=== PATIENT | female | born 1950 | race Caucasian/White ===

== ENCOUNTER 2017-02-13 03:56 | Emergency (ER) | payer MEDICARE, BC ==
[2017-02-13] MEDS ORDERED: NS 0.9% 1000 ML* 1,000 ML IV ONE (04:18)
[2017-02-13] MEDS ORDERED: Morphine INJ* 4 MG/ML 1 ML SYRINGE IV ONE ×2 (04:18→06:03)
[2017-02-13] MEDS ORDERED: Ondansetron INJ* 2 MG/ML VIAL IV ONE (04:18)
--- NOTE | 2017-02-13 04:59 | ED ---
José Antonio Gandhi Salem, scribed for Antony Chu MD on 02/13/17 at 0428 . Abdominal Pain/Female - HPI Summary HPI Summary: Patient is 67 y/o F who presents to the ED with sudden onset abdominal pain radiating into her back since 0230 today. She reports vomiting (once) and nausea , but denies fever or diarrhea. She denies hx of abd pain. Pt reports eating PJ sandwich and ice cream for dinner as her and her were in a hurry. Pt states that pain woke her up this morning. NKDA. 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 Negative : Fever, Diarrhea Allergies/Adverse Reactions: Allergies Allergy/AdvReac Type Severity Reaction Status Date / Time No Known Allergies Allergy Verified 02/13/17 04:02 PMH/Surg Hx/FS Hx/Imm Hx Endocrine/Hematology History: Denies: Hx Diabetes Cardiovascular History: Reports: Hx Hypertension Denies: Hx Congestive Heart Failure History: Denies: Hx Renal Disease Musculoskeletal History: Reports: Hx Arthritis Denies: Hx Back Problems, Hx Bursitis, Hx Congenital Bone Abnormalities, Hx Fibromyalgia, Hx Gout, Hx Orthopedic Injury, Hx Osteoporosis, Hx Scoliosis, Hx Tendonitis, Other Musculoskeletal History - Cancer History Hx Chemotherapy: No Hx Radiation Therapy: No - Surgical History Surgery Procedure, Year, and Place: Plate on Right leg for Fracture 2000. Tubal ligation. Hx Anesthesia Reactions: No Infectious Disease History: Denies: Traveled Outside the [place] in Last 30 Days - Family History Known Family History: Positive: Hypertension - Social History Alcohol Use: Rare Hx Substance Use: Yes Substance Use Type: Reports: Excessive Caffeine Review of Systems Negative: Fever Positive: Abdominal Pain, Vomiting, Nausea. Negative: Diarrhea All Other Systems Reviewed And Are Negative: Yes Physical Exam Triage Information Reviewed: Yes Vital Signs On Initial Exam: Initial Vitals Temp Pulse Resp BP Pulse Ox 97.4 F 64 20 97/80 100 02/13/17 03:59 02/13/17 03:59 02/13/17 03:59 02/13/17 03:59 02/13/17 03:59 Vital Signs Reviewed: Yes Appearance: Positive: Pain Distress - mild discomfort, Obese Skin: Positive: Warm Head/Face: Positive: Normal Head/Face Inspection Eyes: Positive: ISIDORO ENT: Positive: Hearing grossly normal Neck: Positive: Supple Respiratory/Lung Sounds: Positive: Breath Sounds Present Cardiovascular: Positive: RRR Abdomen Description: Positive: Soft, Distended, Other: - moderate diffuse abd tenderness Bowel Sounds: Positive: Present Musculoskeletal: Positive: Strength/ROM Intact Neurological: Positive: Alert, Oriented to Person Place, Time Diagnostics - Vital Signs Vital Signs Temp Pulse Resp BP Pulse Ox 02/13/17 03:59 97.4 F 64 20 97/80 100 - Laboratory Result Diagrams: 02/13/17 06:14 02/13/17 06:14 Lab Statement: Any lab studies that have been ordered have been reviewed, and results considered in the medical decision making process. - CT abd/pelvis CT Interpretation Completed By: Radiologist - IMPRESSION: see EMR pending radiology. Re-Evaluation - Re-Evaluation First Eval Change: Improved Abdominal Pain Fem Course/Dx - Course Course Of Treatment: 67 y/o F presents with sudden onset abdominal pain radiating into her back since 0230 today. She reports vomiting (once) and nausea , but denies fever or diarrhea. Pt received fluids, Morphine, and Zofran in the ED course. Pending CT. Pt will be signed out at shift change. - Diagnoses Provider Diagnoses: Abdominal pain Discharge - Discharge Plan Condition: Stable Disposition: HOME Discharge Disposition Comment: Sign out to Dr. Galeano at shift change. Patient Education Materials: Abdominal Pain (ED) Referrals: Non Staff,Doctor [Primary Care Provider] - 2 Days The documentation as recorded by the José Antonio amor Salem accurately reflects the service I personally performed and the decisions made by me, Antony Chu MD.
[2017-02-13 06:25] LABS: Hematocrit 39 % (35-47); Mean Corpuscular HGB Conc 33 g/dl (31-36); Mean Corpuscular Hemoglobin 31 pg (27-31); Mean Corpuscular Volume 93 fL (80-97); Mean Platelet Volume 10 um3 (7.4-10.4); Red Blood Count 4.23 10^6/ul (4.0-5.4); Red Cell Distribution Width 14 % (10.5-15); White Blood Count 15.5 10^3/ul (3.5-10.8)
[2017-02-13 06:46] LABS: Albumin 4.2 g/dL (3.2-5.2); C Reactive Protein 1.13 mg/L (< 5.00); Calcium 9.4 mg/dL (8.6-10.3); EGFR African American 111.3 (>60); EGFR Non-African American 86.6 (>60); Globulin 2.8 g/dL (2-4); Magnesium 1.9 mg/dL (1.9-2.7); Potassium 3.8 mmol/L (3.5-5.0); Total Bilirubin 0.7 mg/dL (0.2-1.0)
[2017-02-13] MEDS ORDERED: Iohexol 300* (CONTRAST) 10 ML SDV IV ONE (07:03)
[2017-02-13 07:50] LABS: Urine Bacteria Absent (Absent); Urine Bilirubin Negative (Negative); Urine Glucose Negative (Negative); Urine Nitrite Negative (Negative)
--- NOTE | 2017-02-13 09:16 | RAD ---
Indication: Mid abdominal pain. Contrast: Administered 102.0 ml of OMNIPAQUE 300 mgi/ml CT of the abdomen and pelvis was performed after oral and IV contrast administration. Coronal and sagittal reconstructed images were obtained. Comparison is made with previous exam dated October 04, 2013. Lung bases demonstrate dependent changes. The heart demonstrates no pericardial effusion. Liver is normal in size. No focal lesions or intrahepatic ductal dilatation is noted. The gallbladder demonstrates no calcified gallstones. No pericholecystic fluid or wall thickening is identified. The pancreas indicates no mass or pancreatic duct dilatation. The common duct is not dilated. The spleen is normal in size. No adrenal masses are noted. The kidneys demonstrate symmetric nephrograms without evidence of focal lesions. No hydronephrosis of either kidney is noted. Aorta and inferior vena cava are normal caliber without evidence of aneurysmal dilatation. Minimal atherosclerosis of the aorta is noted. There is interposed colon between the liver in the anterior abdominal wall. Small bowel demonstrates no abnormal dilatation. CT of the pelvis demonstrates no pelvic masses or fluid collections. The ovaries are unremarkable. Diverticulosis without definite evidence of diverticulitis is noted. No abnormal fluid collections are identified. Urinary bladder is well-distended without evidence of hernia. No focal wall thickening is identified. No free fluid is identified. There is some mucosal thickening of the rectum which appears to be chronic process as this was noted on October 04, 2013.. IMPRESSION: DIVERTICULOSIS WITHOUT EVIDENCE OF DIVERTICULITIS. NO ABNORMAL MASSES OR FLUID COLLECTIONS ARE NOTED. THERE IS INTERPOSED COLON NOTED BETWEEN THE LIVER AND THE DIAPHRAGM. SUBMUCOSAL EDEMA IN THE RECTUM. THIS IS UNCHANGED FROM PRIOR EXAM
[2017-02-13 10:22] VITALS: BP 139/71
--- NOTE | 2017-02-13 18:48 | ED ---
Liza Gandhi Auryana, scribed for Mickey Galeano MD on 02/13/17 at 0742 . Progress - Progress Note Progress Note: Sign out from Dr. Chu to Dr. Galeano at 07:[address] ABD/PEL. 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 The pain is located in the upper abdominal area and occasionally radiates to the back. She denies any diarrhea. On ED physician visit, patient denies any pain. Physical exam was normal. VITAL SIGNS: Reviewed. GENERAL: Patient is a well-developed and nourished female who is lying comfortable in the stretcher. Patient is not in any acute respiratory distress. HEAD AND FACE: Normocephalic and atraumatic. EYES: PERRLA, EOMI x 2, No injected conjunctiva. EARS: Hearing grossly intact. Ear canals and tympanic membranes are WNL. MOUTH: Oropharynx within normal limits. NECK: Supple, trachea is midline, no adenopathy, no JVD. CHEST: Symmetric, no tenderness at palpation LUNGS: Clear to auscultation bilaterally. No wheezing or crackles. CVS: RRR, S1 and S2 present, no murmurs or gallops appreciated. ABDOMEN: Soft, non-tender. No signs of distention. Positive bowel sounds. No rebound no guarding, and no masses palpated. No abdominal bruit or pulsations. EXTREMITIES: FROM in all major joints, no edema, no cyanosis or clubbing. NEURO: Alert and oriented x 3. No acute neurological deficits. Speech is normal. SKIN: Dry and warm - Results/Orders Results/Orders: CT ABD/PEL W: IMPRESSION: DIVERTICULOSIS WITHOUT EVIDENCE OF DIVERTICULITIS. NO ABNORMAL MASSES OR FLUID COLLECTIONS ARE NOTED. THERE IS INTERPOSED COLON NOTED BETWEEN THE LIVER AND THE DIAPHRAGM. SUBMUCOSAL EDEMA IN THE RECTUM. THIS IS UNCHANGED FROM PRIOR EXAM Course/Dx - Course Course Of Treatment: Sign out from Dr. Chu to Dr. Galeano at 07:[address] ABD/PEL. 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 The pain is located in the upper abdominal area and occasionally radiates to the back. She denies any diarrhea. On ED physician visit, patient denies any pain. Physical exam was normal. Test results show WBC 15.5 with no other significant abnormalities. CT ABD/PEL WITH CONTRAST: IMPRESSION: DIVERTICULOSIS WITHOUT EVIDENCE OF DIVERTICULITIS. NO ABNORMAL MASSES OR FLUID COLLECTIONS ARE NOTED. THERE IS INTERPOSED COLON NOTED BETWEEN THE LIVER AND THE DIAPHRAGM. SUBMUCOSAL EDEMA IN THE RECTUM. THIS IS UNCHANGED FROM PRIOR EXAM. Since there are no significant abnormalities, and the patient is feeling better after morphine, she will be discharged home with follow up to PCP. Patient is hemodynamically stable and A&Ox3. - Diagnoses Provider Diagnoses: Abdominal pain The documentation as recorded by the Liza amor Auryana accurately reflects the service I personally performed and the decisions made by me, Mickey Galeano MD.
== END 2017-02-13 10:22 | disposition home or self-care (01) ==
LOC: ED 03:56
DX: R10.9 Unspecified abdominal pain (principal); M54.9 Dorsalgia, unspecified; R11.2 Nausea with vomiting, unspecified
CPT/HCPCS: 36415; 74177; 80053; 81003; 81015; 83605; 83690; 83735; 85025; 86140; 87086; 96374; 96375; 99283; J2270; J2405; Q9967

== ENCOUNTER 2017-02-14 18:47 | Inpatient (IN) | payer MEDICARE, BC ==
[2017-02-14] MEDS ORDERED: Ondansetron INJ* 2 MG/ML VIAL IV ONE (20:21)
[2017-02-14] MEDS ORDERED: NS 0.9% 1000 ML* 1,000 ML IV ONE (20:21)
--- NOTE | 2017-02-14 20:21 | ED ---
Calvin Gandhi Rebecca, scribed for Antony Chu MD on 02/14/17 at 1923 . Abdominal Pain/Female - HPI Summary HPI Summary: Pt is a 67 y/o F who presents to ED c/o worsening epigastric pain. Pain began 3 days ago and has been constant since onset, waxing and waning in intensity. Sx had improved from approximately 2000 to 0000 yesterday, worsening again at midnight. Pain is currently severe, ranked 10/10 and discrete to the epigastric region with radiation to the back. Sx aggravated and alleviated by nothing, unchanged by Tramadol. She has not attempted antacid treatment. Additionally c/ o nausea. Denies fever, diarrhea. Pt was evaluated by [facility] yesterday morning for similar sx during which a CT Abd/Pel was done, showing diverticulosis without diverticulitis and no abnormal masses or fluid collections. She was D/C to home and advised to follow up with her PCP. Current pain is similar to the pain she has been experiencing, but worse. - History of Current Complaint Chief Complaint: EDAbdPain Stated Complaint: WORSENING ABD PAIN Time Seen by Provider: 02/14/17 19:19 Hx Obtained From: Patient Onset/Duration: Lasting Days - 3 days, Still Present, Worse Since - midnight Timing: Constant Severity Currently: Severe Pain Intensity: 10 Pain Scale Used: 0-10 Numeric Location: Epigastric Radiates: Yes Radiates to: Back Aggravating Factor(s): Nothing Alleviating Factor(s): Nothing Associated Signs and Symptoms: Positive: Nausea. Negative: Fever, Diarrhea Allergies/Adverse Reactions: Allergies Allergy/AdvReac Type Severity Reaction Status Date / Time No Known Allergies Allergy Verified 02/13/17 04:02 Home Medications: Home Medications Hydrochlorothiazide TAB* [Hydrodiuril TAB*] 25 mg PO DAILY 02/15/17 [History] PMH/Surg Hx/FS Hx/Imm Hx Endocrine/Hematology History: Denies: Hx Diabetes Cardiovascular History: Reports: Hx Hypertension Denies: Hx Congestive Heart Failure History: Denies: Hx Dialysis, Hx Renal Disease Musculoskeletal History: Reports: Hx Arthritis Denies: Hx Back Problems, Hx Bursitis, Hx Congenital Bone Abnormalities, Hx Fibromyalgia, Hx Gout, Hx Orthopedic Injury, Hx Osteoporosis, Hx Scoliosis, Hx Tendonitis, Other Musculoskeletal History - Cancer History Hx Chemotherapy: No Hx Radiation Therapy: No - Surgical History Surgery Procedure, Year, and Place: Plate on Right leg for Fracture 2000. Tubal ligation. Hx Anesthesia Reactions: No Infectious Disease History: Denies: Traveled Outside the [place] in Last 30 Days - Family History Known Family History: Positive: Hypertension - Social History Alcohol Use: Rare Hx Substance Use: Yes Substance Use Type: Reports: Excessive Caffeine Smoking Status (MU): Never Smoked Tobacco Review of Systems Negative: Fever Positive: Abdominal Pain - Epigastric with radiation to the back, Nausea. Negative: Diarrhea All Other Systems Reviewed And Are Negative: Yes Physical Exam Triage Information Reviewed: Yes Vital Signs On Initial Exam: Initial Vitals Temp Pulse Resp BP Pulse Ox 99.9 F 90 20 153/78 94 02/14/17 18:55 02/14/17 18:55 02/14/17 18:55 02/14/17 18:55 02/14/17 18:55 Vital Signs Reviewed: Yes Appearance: Positive: Well-Appearing, Pain Distress - mild discomfort Skin: Positive: Warm Head/Face: Positive: Normal Head/Face Inspection Eyes: Positive: ISIDORO ENT: Positive: Hearing grossly normal Neck: Positive: Supple Respiratory/Lung Sounds: Positive: Breath Sounds Present Cardiovascular: Positive: RRR Abdomen Description: Positive: Soft, Distended, Other: - upper abd tenderness Bowel Sounds: Positive: Present Musculoskeletal: Positive: Strength/ROM Intact Neurological: Positive: Alert, Oriented to Person Place, Time Psychiatric: Positive: Affect/Mood Appropriate Diagnostics - Vital Signs Vital Signs Temp Pulse Resp BP Pulse Ox 02/14/17 18:55 99.9 F 90 20 153/78 94 - Laboratory Result Diagrams: 02/14/17 21:11 02/14/17 21:11 Lab Statement: Any lab studies that have been ordered have been reviewed, and results considered in the medical decision making process. - CT CT Abd/Pel CT Interpretation: Positive (See Comments) - Distended gallbladder with hazy infiltration of the pericholecystic fat. Consider cholecystitis. CT Interpretation Completed By: Radiologist Re-Evaluation - Re-Evaluation First Eval Re-Evaluation Time: 00:31 Change: Improved Comment: Discussed CT results and the plan to admit with the pt. Abdominal Pain Fem Course/Dx - Course Course Of Treatment: Pt is a 67 y/o F who presents to ED c/o epigastric pain with radiation to the back for 3 days, worsened at midnight and is currently severe, ranked 10/10. Sx unchanged by Tramadol. She has not attempted antacid treatment. Denies fever, diarrhea. Pt was evaluated by [facility] yesterday morning for similar sx during which a CT Abd/Pel was done, showing diverticulosis without diverticulitis and no abnormal masses or fluid collections. She was D/C to home and advised to follow up with her PCP. Current pain is similar to the pain she has been experiencing, but worse. WBC of 20.1, CRP of 106.28, lipase < 10, troponin of 0.01. CT Abd/Pel reveals "Distended gallbladder with hazy infiltration of the pericholecystic fat. Consider cholecystitis. " Discussed care of pt with Dr. Meyer making him aware of the pt. Discussed care of pt with Dr. Selvin Nuñez, at 0029, who accepts pt for admission. Pt will be admitted with a Dx of cholecystitis. She understands and agrees. - Diagnoses Provider Diagnoses: Cholecystitis - Provider Notifications Discussed Care Of Patient With: Selvin Nuñez Time Discussed With Above Provider: 00:22 Instructed by Provider To: Admit As Inpatient - Making him aware of the pt. Discussed care of pt with Dr. Selvin Nuñez, at 0029, who accepts pt for admission. Discharge - Discharge Plan Condition: Fair Disposition: ADMITTED TO [facility] documentation as recorded by the Calvin amor Rebecca accurately reflects the service I personally performed and the decisions made by me, Antony Chu MD.
[2017-02-14] MEDS ORDERED: LORazepam INJ* 2 MG/ML 1 ML VIAL IV PUSH ONE (20:22)
[2017-02-14 21:18] LABS: Hematocrit 42 % (35-47); Hemoglobin 13.7 g/dl (12.0-16.0); Mean Corpuscular HGB Conc 33 g/dl (31-36); Mean Corpuscular Hemoglobin 30 pg (27-31); Mean Corpuscular Volume 92 fL (80-97); Mean Platelet Volume 10 um3 (7.4-10.4); Red Blood Count 4.56 10^6/ul (4.0-5.4); Red Cell Distribution Width 14 % (10.5-15); White Blood Count 20.1 10^3/ul (3.5-10.8)
[2017-02-14 21:34] LABS: ALT 14 U/L (7-52); AST 18 U/L (13-39); Albumin 4.3 g/dL (3.2-5.2); Alkaline Phosphatase 100 U/L (34-104); Anion Gap 8 mmol/L (2-11); BUN/Creatinine Ratio 12.5 (8-20); Blood Urea Nitrogen 9 mg/dL (6-24); C Reactive Protein 106.28 mg/L (< 5.00); CO2 Carbon Dioxide 28 mmol/L (22-32); Calcium 9.3 mg/dL (8.6-10.3); Chloride 97 mmol/L (101-111); EGFR African American 104.2 (>60); Globulin 3.1 g/dL (2-4); Glucose 137 mg/dL (70-100); Lipase < 10 U/L (11.0-82.0); Sodium 133 mmol/L (133-145); Total Protein 7.4 g/dL (6.4-8.9)
[2017-02-14 21:35] LABS: Troponin I 0.01 ng/mL (<0.04)
[2017-02-14 22:03] LABS: Urine Bacteria Absent (Absent); Urine Bilirubin Negative (Negative); Urine Glucose Negative (Negative); Urine Nitrite Negative (Negative)
[2017-02-14] MEDS ORDERED: Morphine INJ* 4 MG/ML 1 ML SYRINGE SUBCUT ONE (22:16)
[2017-02-15] MEDS ORDERED: Morphine INJ* 2 MG/ML 1 ML SYRINGE IV PRN (00:39)
[2017-02-15] MEDS ORDERED: Metoclopramide IV* 5 MG/ML 2 ML VIAL IV PRN (00:39)
[2017-02-15] MEDS ORDERED: ZOSYN 3.375 GM x ONE DOSE over 30 miuntes IVPB ×2 (00:39)
[2017-02-15] MEDS ORDERED: Piperacillin/Tazobac (*) 3.375 GM ADDV.VIAL ONE (00:48)
[2017-02-15] MEDS: Morphine INJ* 4 MG/ML 1 ML SYRINGE IV PRN ×5 (01:53→23:07)
[2017-02-15] MEDS: NS 0.9% 1000 ML* 1,000 ML IV SCH ×2 (01:56→10:52)
[2017-02-15 07:08] LABS: Hematocrit 38 % (35-47); Hemoglobin 12.5 g/dl (12.0-16.0); Mean Corpuscular HGB Conc 33 g/dl (31-36); Mean Corpuscular Hemoglobin 30 pg (27-31); Mean Corpuscular Volume 92 fL (80-97); Mean Platelet Volume 9 um3 (7.4-10.4); Red Blood Count 4.13 10^6/ul (4.0-5.4); Red Cell Distribution Width 14 % (10.5-15)
[2017-02-15 07:20] LABS: Add Diff/Slide Review? Slide Review Added; Comments Flag Yes
[2017-02-15 07:25] LABS: Albumin 3.5 g/dL (3.2-5.2); BUN/Creatinine Ratio 17.1 (8-20); Calcium 8.1 mg/dL (8.6-10.3); EGFR African American 107.7 (>60); EGFR Non-African American 83.7 (>60); Globulin 2.6 g/dL (2-4); Potassium 3.6 mmol/L (3.5-5.0); Total Bilirubin 1.9 mg/dL (0.2-1.0); Total Protein 6.1 g/dL (6.4-8.9)
--- NOTE | 2017-02-15 07:56 | RAD ---
INDICATION: Abdominal pain COMPARISON: CT abdomen pelvis previous day TECHNIQUE: Axial source images were acquired from the level hemidiaphragms to the symphysis pubis pubis. Intravenous contrast was not given due to lack of IV access. This limits evaluation of the solid viscera. Lung bases: Minor gravity dependent atelectasis. Liver: The liver is normal in size. Noncontrast imaging shows no evidence of a hepatic mass or ductal dilatation. Gallbladder: There are no calcified gallstones. There is no evidence of wall thickening. The gallbladder is mildly distended and there is a small amount of pericholecystic fluid. Spleen: The spleen is normal in size. The noncontrast CT appearance is normal. Pancreas: Noncontrast imaging shows no pancreatic mass or ductal dilitation. Adrenal glands: No masses are identified. Kidneys/Bladder: There is no evidence of nephrolithiasis or CT evidence of hydronephrosis. Noncontrast imaging shows no evidence of a renal mass. The bladder is unremarkable.. Adenopathy: There is no evidence of intraperitoneal or retroperitoneal adenopathy. Evaluation is limited without oral contrast. Fluid collections: Small amount of mesenteric edema. Vessels: The aorta and iliac vessels are normal in caliber. There are no significant atherosclerotic changes. The IVC appears normal Pelvic organs: The uterus and adnexa appear normal GI tract: No CT head nausea for GI tract. Colonic interposition in the right upper quadrant. Moderate diverticula of the sigmoid colon. Significant mucosal edema of the rectum, unchanged No findings of obstruction. Soft tissues: Tiny fat-containing periumbilical hernia. Osseous structures: No acute osseous changes. IMPRESSION: 1. Mild gallbladder distention with pericholecystic fluid. Consider cholecystitis. Recommend follow-up Doppler sonography. 2. Colonic diverticula. No CT evidence of acute diverticulitis. Mucosal edema of the rectum, unchanged.
[2017-02-15] MEDS ORDERED: Famotidine IV* 10 MG/ML 2 ML (20 mg) IV SLOW PU ONE (09:56)
--- NOTE | 2017-02-15 10:09 | HP ---
CC: [facility] HISTORY AND PHYSICAL: DATE OF ADMISSION: 02/15/17 The patient seen on short stay unit on 02/15/17. CHIEF COMPLAINT/HISTORY OF PRESENT ILLNESS: I was contacted by the emergency room in the overnight period regarding Ms. Oliver, 67-year-old female who presented to the emergency room on two with complaints of abdominal pain and was diagnosed with acute cholecystitis. The patient w as tachycardiac with low grade fever in the emergency room and a request for admission was made by jose lacey ER doctor. I did this over the telephone after he had fully assessed her. The patient states that she started with upper abdominal pain at 2 a.m. on Wednesday morning and by jose lacey time morning came, she presented to the emergency room. She was evaluated, treated then released , was noted to have a white count of 15 with relatively normal metabolic panel and LFTs. She was di scharged home after undergoing a CT scan. The patient re-presented to the emergency room with persistent abdominal pain. She describes this a s minimally radiating to the back but not to the shoulder, accompanied with decreased appetite. She had not eaten since Wednesday night. Decreased bowel movements and flatus. She denied nausea but did have one episode of vomiting while in the emergency room the prior day. The patient denied any prev ious similar symptoms. Pain was controlled with narcotics and by lying still. Workup last night inc luded additional CAT scan and labs. PAST MEDICAL HISTORY: Hypertension, hypercholesterolemia, obesity. PAST SURGICAL HISTORY: Right knee surgery. No abdominal surgeries. MEDICATIONS: Include; 1. Diovan. 2. Hydrochlorothiazide. 3. Lipitor. 4. Tramadol p.r.n. ALLERGIES: No known drug allergies. FAMILY HISTORY: Gallbladder disease. SOCIAL HISTORY: She does not smoke, drink or do IV drugs. 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 She exercises regularly, walking approximately 2 miles a day and swimmi ng. REVIEW OF SYSTEMS: No headaches or visual disturbances. No shortness of breath or chest pain. No history of cerebrovascular disease. History of hypertension, on multiple medications. Abdominal pa in as described. No dysuria. No change in bowel habits but has not had bowel movement for 3 days. No bleeding or clotting disorders. No endocrine or rheumatologic diseases. The patient had a colonoscopy in 2013, which showed diverticulosis and she did undergo biopsies, but the cecum was described as normal, and the biopsies were in the area of the rectum. Biopsy showed no evidence of malignancy. PHYSICAL EXAMINATION GENERAL: She is alert and oriented x3, in no apparent distress. VITAL SIGNS: Temperature 98.3, T-max of 100.0, heart rate 106, blood pressure 129/64, respirations 16 with an O2 sat of 95 on room air. HEENT: Head is normocephalic, atraumatic. Sclerae anicteric. Mucous membranes are moist. NECK: No lymphadenopathy. LUNGS: Clear to auscultation bilaterally. ABDOMEN: Soft, obese, mild distention. Tenderness in the epigastrium with positive Cisneros sign. N o rebound. No hernias or masses noted. No CVA tenderness. EXTREMITIES: Within normal limits. RECTAL: Not performed. LABORATORY DATA: Reviewed, show a white count of 20 upon arrival, 18 this morning with left shift, normal H and H, and a chemistry panel, which shows a bilirubin of 1.9 which is down from 2.1 yester day. She had elevated CRP of 106. Urinalysis, which showed ketones and blood. CAT reviewed, both report and images, which shows contrast through to the colon, mild gallbladder wa ll distention, pericholecystic fluid, some colonic diverticula. It is noted that the colon along wit h the normal appearing appendix is in the right upper quadrant. She has a tiny fat containing periu mbilical hernia. IMPRESSION AND PLAN: Acute cholecystitis with evidence of symptomatic inflammatory response syndrom e. The patient was admitted, started on antibiotics and IV fluids. We discussed that she will benef it from operative intervention today with laparoscopic cholecystectomy. I described that it would b e done by my partner, Dr. Maciel, who today. We spoke about postoperative care and plan f or stay versus discharge that will be decided after the surgery. We will increase her IV fluids. H er blood pressure is well controlled. TIME SPENT: Overall, approximately 40 minutes was spent with the patient, half of which was going o jovan the plan of care. [id number]/[facility] #: [id number]
[2017-02-15] MEDS ORDERED: Buffered Lidocaine 0.9% SYRIN* 5 ML/SYR SYRINGE ONE (14:29)
[2017-02-15] MEDS ORDERED: Bupivacaine 0.25% EPI 200,000* 30 ML SDV ONE (15:27)
[2017-02-15] MEDS ORDERED: Famotidine IV* 10 MG/ML 2 ML (20 mg) ONE (15:39)
[2017-02-15] MEDS ORDERED: Midazolam* 1 MG/ML 5 ML VIAL (5 MG) ONE (15:43)
[2017-02-15] MEDS ORDERED: fentaNYL* 50 MCG/ML 2 ML VIAL (100 MCG VIAL) ONE (15:43)
[2017-02-15] MEDS ORDERED: KETAMINE HCL* 50 MG/ML 10 ML VIAL ONE (15:47)
[2017-02-15] MEDS ORDERED: Ketorolac INJ* 30 MG/ML 1 ML VIAL ONE (15:50)
[2017-02-15] MEDS ORDERED: Propofol* 10 MG/ML 20 ML BTL IV PUSH ONE (15:50)
[2017-02-15] MEDS ORDERED: Dexamethasone IV* 4 MG/ML 1 ML (4 MG) ONE (15:50)
[2017-02-15] MEDS ORDERED: Lidocaine 2% PF * 5 ML VIAL ONE (15:50)
[2017-02-15] MEDS ORDERED: Ondansetron INJ* 2 MG/ML VIAL ONE (15:50)
[2017-02-15] MEDS ORDERED: Succinylcholine* 20 MG/ML 10 ML VIAL ONE (15:50)
[2017-02-15] MEDS ORDERED: DiMENhydriNATE IV* 50 MG/ML VIAL ONE (15:50)
[2017-02-15] MEDS ORDERED: Glycopyrrolate IV* 0.2 MG/ML 1 ML VIAL ONE (16:45)
[2017-02-15] MEDS ORDERED: Rocuronium* 10 MG/ML VIAL ONE (16:52)
[2017-02-15] MEDS ORDERED: HYDROmorphone* 1 MG/ML 1 ML SYR ONE (17:27)
[2017-02-15] MEDS ORDERED: Iohexol 180 (CONTRAST) 10 ML SDV IV ONE ×3 (17:54→18:25)
--- NOTE | 2017-02-15 19:05 | PN ---
Progress Note - Progress Note Date of Service: 02/15/17 Note: Brief Operative Note: Preop Dx: Acute cholecystitis Postop Dx: same Procedure: Laparoscopic cholecystectomy with intraoperative cholangiogram Anesthesia: GET Surgeon: Raheem Asst: ISAURO Mehta; OMAR Brock EBL: 50 ml Fluids: 2300 RL Drains: MEAGAN Specimen: Gallbladder Findings: dictated
--- NOTE | 2017-02-15 20:06 | RAD ---
INDICATION: Intraoperative criteria for cholecystitis COMPARISONS: None relevant TECHNIQUE: Fluoroscopy was provided for an intraoperative cholangiogram. Total fluoroscopy time is: 1 minute, 30 seconds FINDINGS: Contrast is noted within the common duct. There is suboptimal visualization of the intrahepatic bile duct. There is narrowing of the distal common duct at the level of the ampulla. There is no appreciable filling defect. IMPRESSION: FLUOROSCOPY WAS PROVIDED FOR AN INTRAOPERATIVE CHOLANGIOGRAM CPT II Codes: 6045F
[2017-02-15] MEDS ORDERED: DiMENhydriNATE IV* 50 MG/ML VIAL IV PUSH PRN (20:15)
[2017-02-15] MEDS ORDERED: HYDROmorphone* 1 MG/ML 1 ML SYR IV PRN (20:15)
[2017-02-15] MEDS ORDERED: oxyCODONE/Acetamin 5/325 MG* TAB PO PRN (20:20)
[2017-02-15] MEDS: Ketorolac INJ* 30 MG/ML 1 ML VIAL IV PUSH PRN (21:25)
[2017-02-16] MEDS: Morphine INJ* 4 MG/ML 1 ML SYRINGE IV PRN ×3 (01:32→05:56)
[2017-02-16] MEDS: NS 0.9% 1000 ML* 1,000 ML IV SCH (05:57)
[2017-02-16 06:09] LABS: Hematocrit 38 % (35-47); Hemoglobin 12.2 g/dl (12.0-16.0); Mean Corpuscular HGB Conc 32 g/dl (31-36); Mean Corpuscular Hemoglobin 30 pg (27-31); Mean Corpuscular Volume 94 fL (80-97); Mean Platelet Volume 10 um3 (7.4-10.4); Red Blood Count 4.02 10^6/ul (4.0-5.4); Red Cell Distribution Width 15 % (10.5-15); White Blood Count 14.3 10^3/ul (3.5-10.8)
--- NOTE | 2017-02-16 06:20 | OP ---
DATE OF OPERATION: 02/15/17 - ROOM #347 DATE OF : 52 SURGEON: Darius Maciel MD NURSING PROFESSOR: ISAURO Alcala ANESTHESIOLOGIST: Dr. Valentin. ANESTHESIA: General with local. PRE-OP DIAGNOSIS: Acute cholecystitis. POST-OP DIAGNOSIS: Acute acalculous cholecystitis. OPERATIVE PROCEDURE: Laparoscopic cholecystectomy. ESTIMATED BLOOD LOSS: Not recorded but minimal. IV FLUIDS: 2 liters of crystalloid. SPECIMENS: Gall bladder. WOUND CLASSIFICATION: 4. DRAINS: #10 MEAGAN drain in the right upper quadrant. URINE OUTPUT: Not recorded. FINDINGS: The patient had a severe apparent acalculous cholecystitis with a hemorrhagic thick-walled gallbladder with hydrops and pus within the gallbladder itself and what appeared to be an aberrant cystic artery extending over the front surface of the gallbladder. A cholangiogram was also performed, which was difficult due to some extravasation of contrast but it does not appear to be common duct obstruction. This was done for anatomy identification. Brief history, Ms. Evie Oliver is a 67-year-old woman who early this past Wednesday morning woke up in the middle of the night with some severe epigastric and right upper quadrant abdominal pain that radiated through to the back. She never had symptoms such as this before and had no known gallbladder issues. She presented to the emergency room, was noted to have a white blood cell count of 15,000, and underwent a CT scan of the abdomen and pelvis, which was unremarkable. She felt better after some analgesia and was discharged home. The pain persisted over the next 24 hours. She came back to the emergency room yesterday, and at this time, was noted to have a white blood cell count of 20, 000 and tenderness in the epigastric and right upper quadrant. A CAT scan of the abdomen and pelvis was repeated, which showed no calcified gallstones, but some hazy thickening of the gall-bladder with some probable pericholecystic inflammation worrisome for acute cholecystitis. There were no other acute findings on the CT scan. PHYSICAL EXAMINATION: She is afebrile with a heart rate of around 100. She had tenderness in the epigastrium and right upper quadrant, which was quite significant. At this point, it was felt that she has acute cholecystitis, possibly acalculous cholecystitis. After discussing these findings with her and her , reviewing the CT scan, the laboratory workup, it was recommended that she undergo a cholecystectomy. The procedure was discussed in detail with the patient and her . The risks include but not limited to bleeding, infection, intraabdominal abscess formation, possibility of an open procedure, common bile duct injury requiring further reconstruction surgery, injury to peritoneal and retroperitoneal structures, abscess formation, possibility of other indicated procedures were also discussed. The risks of general anesthesia and deep vein thrombosis and pulmonary embolism were also discussed. Questions were answered to the best of my ability. DESCRIPTION OF PROCEDURE: Written informed consent was obtained. The abdomen was marked with indelible ink and preoperative antibiotics were administered. The patient was taken to the operating room and placed in a supine position. Sequential compression devices and a warming blanket were applied. General anesthesia was administered. It should be noted that there was some difficulty with the intubation. Please see the separate anesthesia notes regarding this. The abdomen was then prepped and draped in the usual sterile fashion. Time-out verification was completed. Next, a small transverse incision was made just above the umbilicus and the peritoneal cavity was entered under direct vision. A 12-mm blunt port was inserted and the abdomen was insufflated to 15 mmHg. An 11-mm epigastric port was placed and two 5-mm ports were placed on the right side of the abdominal wall. It was evident the extent of her redundant hepatic flexure and cecum, which were mainly in the right upper quadrant and extending up over the liver bed. This had been noted on the preoperative CT scan as well, but the gallbladder was identified just medial to this in its expected location. It was fiery red and purplish in color, thick-walled and was unable to be grasped and there was omentum quite adherent to it. This was all consistent with an acute cholecystitis. I used a large 18-gauge needle to decompress the gallbladder of about 30 to 40 cc of a white thick hydrops of bile. This allowed us to grasp it and elevate it over the liver bed. The inflamed omentum was taken down off the gallbladder and there was some naturally adherent fat, which had to be peeled off the gallbladder using a combination of blunt and sharp dissection along with cautery. We were able to work our way down the gallbladder, elevating up along the lateral aspect of the gallbladder the peritoneum which was thickened and edematous, was able to identify the border of the gallbladder extending down to the infundibular area. At this point it, was noted that there was what appeared to be an aberrant cystic artery entering the gallbladder that was quite anterior and not in the usual proximity to the to the cystic duct and it ascended from the tissue near the duodenum and certainly could have had its origin in the gastroduodenal artery or the superior mesenteric artery. This was and freed up, but it obviously extended on to the gallbladder, higher up into the body of the gallbladder and it was an arterial pulsatile structure and with careful dissection I was able to assure myself that it did not enter the liver or other structure. We continued with the dissection to identify the infundibulum as it tapered down to the bottom of the gallbladder and cystic duct. It should be noted there were some dense adhesions and acute on chronic inflammation. Then using the critical view technique, I took a considerable portion of the inferior part of the gallbladder off the liver bed to assure myself that there were only these two structures entering the gallbladder, which there were. I did enter the gallbladder inadvertently in the infundibular area and this also had leaked some pus, some purulent white ceamy material, thus this gave the case a wound class of 4. As the gallbladder infundibular tapered down, it was still fairly large caliber and although it did start to taper down, as it entered deeper into the hepatic area, I felt that this was somewhat unsafe to continue pursuing dissection, and I decided to perform a cholangiogram to delineate the anatomy. Next we were able to perform transcystic cholangiogram with fluoroscopy. It was difficult somewhat to pass the catheter in and obtain a leak proof placement of the catheter, and so there was considerable extravasation of the contrast despite multiple attempts. However, I feel I was able to identify the common hepatic and common bile duct and there appeared to be contrast that entered into the duodenum, but this was quite faint and also the gallbladder kept filling with contrast as well. At this point, however, I confirmed the anatomy and felt the cystic duct probably at the junction of the infundibulum. The gallbladder was divided and 2-0 Polysorb Endo loops were used to ligate the cystic duct. I then clipped the cystic artery as noted above and this was divided as well. The gallbladder was then removed from the liver bed using cautery. This was quite adherent and challenging as well. Entered the gallbladder at several points, but nowhere did I see that there were gallstones within the gallbladder. The gallbladder was then placed in an Endo Catch bag and brought out through the umbilical incision. Once again palpated no stones within the thickened gallbladder itself. I then irrigated thoroughly the right upper quadrant. Hemostasis was assured. There was no evidence of bile leak. A #10 MEAGAN drain was placed in Morison's pouch and brought up through the lateral 5-mm stab wound and sutured at the skin level with a 3-0 Prolene suture. All ports were removed under direct vision of the camera. There was no abdominal wall bleeding. The umbilical fascia was closed with interrupted 0 Polysorb suture. The skin at all 3 incisions were approximated with subcuticular 4-0 Polysorb suture. Steri-Strips were applied. The patient tolerated the procedure well, was taken to the recovery room in stable condition. [id number] #: [id number] MTDD
[2017-02-16 06:23] LABS: Albumin 3.8 g/dL (3.2-5.2); BUN/Creatinine Ratio 16.1 (8-20); Calcium 8.3 mg/dL (8.6-10.3); EGFR African American 83.8 (>60); EGFR Non-African American 65.1 (>60); Potassium 3.6 mmol/L (3.5-5.0); Total Bilirubin 1.1 mg/dL (0.2-1.0); Total Protein 6.8 g/dL (6.4-8.9)
[2017-02-16] MEDS: Ketorolac INJ* 30 MG/ML 1 ML VIAL IV PUSH PRN ×2 (07:40→13:57)
--- NOTE | 2017-02-16 08:12 | PN ---
Progress Note - Progress Note Date of Service: 02/16/17 SOAP: Subjective: This is a 67-year old female POD#1 s/p laparoscopic cholecystectomy for acute acalculous cholecystitis. - Patient reports feels bloated in the abdomen and tender in RUQ, had 1 episode of diarrhea yesterday. Denies any flatus. - Tolerating diet well without n/v, feels hungry and interested in eating regular diet. - Ambulating to the bathroom about every two hours, pain in abdomen with movement. - Denies chest pain, SOB, dyspnea, dizziness or headache. Objective: - WNWD female in NAD, appear comfortable in bed. - Afebrile, VSS - Heart: RRR, no murmurs - Lungs: CTA bilaterally - Abdomen: Dressing over incision CDI, dry blood under steristrips. Bowel sounds present in all four quadrants Round, soft, distended. Non-tender to palpation. - MEAGAN drain: serosanguinous fluid. Assessment: - POD#1 s/p laparoscopic cholecystectomy: patient is stable and doing well. - Leukocytosis: improving (14 today comparing to 20 on Wednesday) Plan: - Advance to low fat diet as tolerated - Continue IV Zosyn - start subcutaneous Heparin for DVT prophylaxis - Encourage ambulation as tolerated.
[2017-02-16] MEDS ORDERED: Acetaminophen TAB* 325 MG PO PRN (08:37)
[2017-02-16] MEDS ORDERED: NS 0.9% 1000 ML* 1,000 ML IV SCH (08:39)
--- NOTE | 2017-02-16 09:00 | PN ---
Progress Note - Progress Note Date of Service: 02/16/17 Note: Surgery Progress: (patient seen w/ Dr. Maciel) S: POD #1. Some pain, mostly when up to BR. No N/V. Had episode of diarrhea last pm. Little flatus since then. Current Medications Acetaminophen (Tylenol Tab*) 650 mg PO Q4H PRN PRN Reason: mild pain or fever Heparin Sodium (Porcine) (Heparin Vial(*)) 5,000 units SUBCUT Q8HR GEORGE Piperacillin Sod/Tazobactam (Sod 3.375 gm/ Sodium Chloride) 100 mls @ 25 mls/ hr IVPB Q8H GEORGE Last Admin: 02/16/17 04:47 Dose: 25 mls/hr Sodium Chloride (Ns 0.9% 1000 Ml*) 1,000 mls @ 0 mls/hr IV PER RATE GEORGE PRN Reason: KVO Ketorolac Tromethamine (Toradol Inj*) 30 mg IV PUSH Q6H PRN PRN Reason: PAIN Last Admin: 02/16/17 07:40 Dose: 30 mg Metoclopramide HCl (Reglan Iv*) 10 mg IV Q6H PRN PRN Reason: NAUSEA Morphine Sulfate (Morphine Inj (Syringe)*) 2 mg IV Q2H PRN PRN Reason: PAIN Morphine Sulfate (Morphine Inj (Syringe)*) 4 mg IV Q2H PRN PRN Reason: SEVERE PAIN Last Admin: 02/16/17 05:56 Dose: 4 mg Oxycodone/Acetaminophen (Percocet 5/325 Tab*) 2 tab PO Q4H PRN PRN Reason: PAIN O: Vital Signs - 8 hr 02/16/17 02/16/17 02/16/17 01:06 01:22 01:32 Temperature 98.7 F Pulse Rate 89 Respiratory 16 15 Rate Blood Pressure 130/74 (mmHg) O2 Sat by Pulse 95 97 Oximetry 02/16/17 02/16/17 02/16/17 02:32 03:16 03:35 Temperature 97.4 F Pulse Rate 100 Respiratory 14 16 16 Rate Blood Pressure 133/61 (mmHg) O2 Sat by Pulse 95 Oximetry 02/16/17 02/16/17 04:35 05:56 Temperature Pulse Rate Respiratory 15 16 Rate Blood Pressure (mmHg) O2 Sat by Pulse Oximetry Intake and Output Last 24 Hours 0702/15/17 02/16/17 02/17/17 06:59 06:59 06:59 06:59 Intake Total 568 3305 Output Total 125 1370 Balance 443 1935 Weight 185 lb 185 lb Intake: IV Fluids 468 2985 LR 1750 NS 468 1235 IVPB 100 Oral 0 320 Output: MEAGAN #1 270 Urine 125 1100 Other: Date of Last Bowel 02/12/2017 Movement # Bowel Movements 0 0 Estimated Stool Amount Large Heart: reg Lungs:c lear Abd: lap sites w/ small amts of sang drainage; MEAGAN w/ clear serosang drainage; obese; soft; mild incisional tenderness only Labs: Laboratory Tests 02/15/17 02/16/17 02/16/17 07:01 05:59 06:00 WBC 14.3 H Total Bilirubin 1.90 H 1.10 H AST 31 ALT 29 Alkaline Phosphatase 91 A: s/p lap amari for acute cholecystitis, doing well P: cont IV abx (Zosyn); heplock IV; po pain meds; prob d/c home 02/17 (w/ drain?)
[2017-02-16] MEDS: Heparin VIAL(*) 5000 UNITS/ML VIAL (FIVE THOUSAND) SUBCUT SCH ×2 (13:57→22:04)
[2017-02-16] MEDS: oxyCODONE/Acetamin 5/325 MG* TAB PO PRN (20:30)
[2017-02-17] MEDS: oxyCODONE/Acetamin 5/325 MG* TAB PO PRN ×3 (02:11→10:15)
[2017-02-17] MEDS: Heparin VIAL(*) 5000 UNITS/ML VIAL (FIVE THOUSAND) SUBCUT SCH (06:16)
[2017-02-17 07:21] VITALS: BP 125/71
--- NOTE | 2017-02-17 07:54 | PN ---
Progress Note - Progress Note Date of Service: 02/17/17 SOAP: Subjective: This is a 67-year old female POD#2 s/p laparoscopic cholecystectomy for acute cholecystitis. - c/o bloating. Reports passing flatus but denies any BMs. - Pt tolerating low fat diet well w/o n/v. Good appetite. - Pain well controlled with Morphine, Toradol and Percocet. Objective: - WNWD female in NAD, appear comfortable in bed. - VSS, afebrile - Heart: RRR, no murmurs - Lungs: CTA bilaterally. - Abdomen: Dressing over incision CDI, some dry blood under steristrips. Bowel sounds active Soft, round, distended, tympanic. Non-tender to palpation. - Extremities: trace of ankle swelling, calves soft and non-tender. - MEAGAN drain: minimal serosanguinous fluid. - Urine culture final report shows no growth of clinically significant organisms. Intake & Output 02/16/02/17/17 02/17/17 22:59 06:59 14:59 Intake Total 1759 275 Output Total 615 1007 Balance 1144 -732 Intake: IV Fluids 700 NS 700 IVPB 234 NS 234 Oral 825 275 Output: MEAGAN #1 15 7 Urine 600 1000 Other: # Bowel Movements 0 Assessment: - POD#2 s/p laparoscopic cholecystectomy: patient is stable and doing well. Plan: - Possible discharge to home today - Continue IV Zoysn, switch to PO abx if pt d/c'ed - Continue pain management. - Encourage ambulation as tolerated. <Jeanna Brock - Last Filed: 02/17/17 08:07> - Progress Note Date of Service: 02/17/17 SOAP: Subjective: Patient seen and examined with Dr. Maciel in room as well. Objective: [] Assessment: POD#2, s/p laparoscopic cholecystectomy, doing very well Plan: Agree to assessment and plans as above. D/C MEAGAN drain and IVF D/C to home on PO Augmentin and Percocet F/U in office next week <Kristi Orozco - Last Filed: 02/17/17 08:52>
== END 2017-02-17 11:05 | disposition home or self-care (01) | DRG 418 ==
LOC: ED 18:47 → SSU 02-15 00:40
PROVIDERS: ADMIT Surgery; ATTEND Surgery
PROC: BF13YZZ Fluoroscopy of Gallbladder and Bile Ducts using Other Contrast (ICD-10-PCS; 2017-02-15)
PROC: 0FT44ZZ Resection of Gallbladder, Percutaneous Endoscopic Approach (ICD-10-PCS; principal; 2017-02-15 14:45)
DX: K80.00 Calculus of gallbladder with acute cholecystitis without obstruction (principal); K82.1 Hydrops of gallbladder; I10 Essential (primary) hypertension; M19.90 Unspecified osteoarthritis, unspecified site; E78.5 Hyperlipidemia, unspecified; F15.90 Other stimulant use, unspecified, uncomplicated; E66.9 Obesity, unspecified; E78.00 Pure hypercholesterolemia, unspecified; K57.30 Diverticulosis of large intestine without perforation or abscess without bleeding; Z86.010 Personal history of colon polyps; Z98.51 Tubal ligation status; Z82.49 Family history of ischemic heart disease and other diseases of the circulatory system; Z72.89 Other problems related to lifestyle; Z68.33 Body mass index [BMI] 33.0-33.9, adult; Z83.79 Family history of other diseases of the digestive system
CPT/HCPCS: 36415; 74176; 74177; 74300; 80053; 81003; 81015; 83605; 83690; 83735; 84484; 85025; 86140; 87086; 88304; 93005; 96374; 96375; 99283; A9270-GY; J0330; J1100; J1170; J1240; J1644; J1885; J2060; J2250; J2270; J2405; J2543; J2704; J3010; Q9967

== ENCOUNTER 2017-10-18 06:18 | Day surgery (SDC) | payer MEDICARE, BC ==
--- NOTE | 2017-10-08 16:40 | HP ---
CC: Dr. True Cuadra * DATE OF ADMISSION: 10/18/2017. This patient is scheduled for Same Day Surgery admission by Dr. Maciel. DATE OF PREOPERATIVE HISTORY AND PHYSICAL EXAMINATION: 10/08/2017. ATTENDING SURGEON: Dr. Darius Maciel * (dictated by Shania Nunn NP). CHIEF COMPLAINT: Bulge at umbilical incision. HISTORY OF PRESENT ILLNESS: The patient is a 67-year-old female recently evaluated by Dr. Maciel for a small, tender bulge just above the umbilical incision that was used for a sigmoid colon resection for rectal prolapse. She underwent a robotic sigmoid colectomy with Rectopexy in May of 2017. She has done very well and is having no further symptoms of rectal prolapse and her bowels are working fairly well. She denies any generalized abdominal pain, but has started to use stool softeners as her stools have been small and hard. She noted the tender bulge just above the umbilical incision about one month ago. It is very tender, but it is reducible. There has been no erythema or drainage. Dr. Maciel examined the patient and has recommended open repair of the ventral incisional hernia with mesh as a same day surgery procedure. He described the nature of the surgical procedure, the rationale for the use of mesh, the relevant risks and benefits, and today I reviewed the typical postoperative care and recovery. The patient has had a chance to ask questions and stated that she understands the information and is satisfied with the answers given to her questions. She will sign surgical consent on the day of surgery. PAST MEDICAL HISTORY: Obesity, hypertension, hyperlipidemia, rectal prolapse, and osteoarthritis of multiple joints. PAST SURGICAL HISTORY: Robotic sigmoid colectomy with Rectopexy for rectal prolapse at the [facility], May 2017; laparoscopic cholecystectomy in 2016; total right knee replacement, 2013; arthroscopic surgery for a torn meniscus of the right knee, 2002; surgery for right leg fracture, 2001; tubal ligation, 1982. MEDICATIONS: 1. Lipitor 10 mg p.o. daily at bedtime. 2. Diovan 320 mg p.o. daily. 3. Hydrochlorothiazide 12.5 mg p.o. daily. 4. Col-Rite stool softener daily at bedtime. 5. Tramadol/acetaminophen 37.5/325 mg one tablet every 6 hours prn pain in various joints. The patient will hold the Tramadol while she is using postoperative pain medication of Oxycodone/acetaminophen which I prescribed. ALLERGIES: No known drug allergies. FAMILY HISTORY: No known anesthesia complications, bleeding tendencies, or clotting disorders. 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 She has never been a smoker and rarely drinks alcohol, and denies the use of other substances. REVIEW OF SYSTEMS: Constitutional: No fevers, chills, excessive fatigue, or weight loss. Endocrine: No diabetes or thyroid disease. Hematologic: No easy bruising or bleeding. No previous blood transfusions. Respiratory: No dyspnea on exertion, no chronic cough. Cardiovascular: No anginal chest pain or palpitations. Gastrointestinal: No nausea, vomiting, diarrhea, or GI bleeding; she does have occasional constipation and is now using a stool softener and I advised her to increase fiber and water in her diet. Genitourinary: No dysuria. Neurologic: No headache, blurred vision, or areas of focal weakness or numbness. Musculoskeletal: Chronic pain in her shoulders, hands, and left knee. General: With previous anesthesia, the patient was notified that intubation was somewhat difficulty due to a very small airway; the patient has a note from our anesthesia department that she will present to the anesthesiologist on the day of surgery; she denies any previous history of deep vein thrombosis or pulmonary embolism; she denies any bleeding tendencies. PHYSICAL EXAMINATION GENERAL: The patient is a 67-year-old female, obese, well-developed, in no acute distress. SKIN: Warm, dry, intact. VITAL SIGNS: Height 62 inches, weight 196 pounds, body mass index 35.8. Blood pressure 126/72, pulse 76 and regular, respiratory rate 16, temperature 97.5 tympanic. HEENT: Benign. NECK: Supple. No cervical lymphadenopathy. LUNGS: Breath sounds bilaterally clear and equal. HEART: Regular rate and rhythm. No murmurs or rubs appreciated. BACK: No CVA tenderness. ABDOMEN: Obese, multiple well-healed surgical scars. Soft, positive bowel sounds in all quadrants. Just above the umbilicus, there is a small transverse incision and just above this is a palpable, 2 cm, subcutaneous mass which is reducible and a fascial defect of approximately 2 cm. This is mildly tender. There are no skin changes. There are no other obvious masses. EXTREMITIES: Warm without edema or skin ulceration. PELVIC: Exam deferred. RECTAL: Exam deferred. NEUROLOGIC: Alert and oriented times three, steady gait. IMPRESSION: Ventral incisional hernia. PLAN: Same Day Surgery admission to Dr. Maciel service on Wednesday, 2017 for open repair of ventral incisional hernia with mesh. SANTOSH NUNN, GATE CUTTER [id number]/CPS #: [id number] [facility]OLIC HEALTHStephenie
[~2017-10-18 06:18] MED LIST: Buffered Lidocaine 0.9% SYRIN* 5 ML/SYR SYRINGE INTRADERM ONE; DiMENhydriNATE IV* 50 MG/ML VIAL IV PUSH PRN; Famotidine IV* 10 MG/ML 2 ML (20 mg) IV ONE; Morphine INJ* 2 MG/ML 1 ML CARPUJECT IV PRN; Naloxone* 0.4 MG/ML 1 ML VIAL IV PRN; PROCHLORPERAZINE INJ 5 MG/ML 2 ML VIAL IV PRN; Scopolamine 1.5 mg* PATCH TRANSDERM PRN; fentaNYL* 50 MCG/ML 2 ML VIAL (100 MCG VIAL) IV PRN; oxyCODONE/Acetamin 5/325 MG* TAB PO PRN
[2017-10-18] MEDS ORDERED: Famotidine IV* 10 MG/ML 2 ML (20 mg) ONE (06:28)
[2017-10-18] MEDS ORDERED: Buffered Lidocaine 0.9% SYRIN* 5 ML/SYR SYRINGE ONE (06:28)
[2017-10-18] MEDS ORDERED: ceFAZolin 2 GM (*##) 2 GM/100 ML BAG USE CEFA2SOL IVPB ONE (06:28)
[2017-10-18] MEDS ORDERED: fentaNYL* 50 MCG/ML 2 ML VIAL (100 MCG VIAL) ONE (07:14)
[2017-10-18] MEDS ORDERED: Midazolam* 1 MG/ML 10 ML VIAL (10 MG) ONE (07:14)
[2017-10-18] MEDS ORDERED: KETAMINE HCL* 50 MG/ML 10 ML VIAL ONE (07:15)
[2017-10-18] MEDS ORDERED: Benzocaine/Butamben/Tetracain* SPRAY ONE (07:18)
[2017-10-18] MEDS ORDERED: Lidocain 1% EPI 1:100,000 * 30 ML MDV ONE (07:18)
[2017-10-18] MEDS ORDERED: Oxymetazoline 0.05% NASAL SPR* 15 ML BTL ONE (07:18)
[2017-10-18] MEDS ORDERED: Bupivacaine 0.5% SDV PF* 10-30ML VIAL ONE (07:19)
[2017-10-18] MEDS ORDERED: Propofol* 10 MG/ML 20 ML BTL IV PUSH ONE (08:27)
[2017-10-18] MEDS ORDERED: Lidocaine 2% PF * 5 ML VIAL ONE (08:27)
[2017-10-18] MEDS ORDERED: Dexamethasone IV* 4 MG/ML 1 ML (4 MG) ONE (08:27)
[2017-10-18] MEDS ORDERED: Ketorolac INJ* 30 MG/ML 1 ML VIAL ONE (08:27)
[2017-10-18] MEDS ORDERED: Ondansetron INJ* 2 MG/ML VIAL ONE (08:27)
--- NOTE | 2017-10-18 08:47 | OP ---
Operative Report - Blank - Operative Report Date of Operation: 10/18/17 Note: Preop Dx: Ventral Hernia Postop Dx: Ventral Hernia Procedure: Open repair of ventral hernia with primary closure Surgeon: Dr. Maciel Assist: Sandra NELSON Anesthesia: Local MAC Fluids: 700 ml LR Estimated Blood loss: minimal Specimen: none Drains: none Findings: see dictated note
[2017-10-18 09:07] VITALS: BP 121/81
--- NOTE | 2017-10-19 16:45 | OP ---
DATE OF OPERATION: 10/18/17 - [facility] DATE OF : 52 SURGEON: Darius Maciel MD. PLANT BIOLOGY PROFESSOR: ISAURO Quinteros Student. PRE-OP DIAGNOSIS: Ventral incisional hernia. POST-OP DIAGNOSIS: Supraumbilical ventral incisional hernia. OPERATIVE PROCEDURE: Open primary repair of ventral incisional hernia. ESTIMATED BLOOD LOSS: Minimal. WOUND CLASSIFICATION: 1. COMPLICATIONS: None. DRAINS: None. SPECIMENS: None. DESCRIPTION OF PROCEDURE: Written informed consent was obtained. The abdomen was marked with indelible ink and preoperative antibiotics were administered. The patient was taken to the operating room and placed in a supine position. Sequential compression devices and a warming blanket were applied. Anesthesia was administered. The abdomen was prepped and draped in the usual sterile fashion. Time-out verification was completed. The incisional hernia in question was a small incisional hernia just above the umbilicus from a previous laparoscopic procedure, and 0.25% Marcaine mixed with 1% lidocaine was infiltrated into the surrounding tissue and a transverse incision was made, carried down through the scar tissue. There we excised and identified a hernia sac and it was dissected down to the fascial level. This appeared to be a hernia defect of about 1.5 cm and I did excise the sac and we did enter the peritoneal cavity at this point, but there is no bowel involved with the hernia itself. It did not appear to be an umbilical hernia. There was some other scar tissue adherent to the underlying umbilicus, which I excised , and did "button hole" the umbilicus skin in one area, but this was excised and closed primarily. In light of the small size of the hernia, the fascial defect was closed with several interrupted 0 Polysorb sutures placed in transverse orientation. This closed the fascia nicely, without evidence of tension. Hemostasis was assured. The wound was closed layers with 3-0 and 4-0 Polysorb suture. Steri-Strips were applied. Sterile dressings were then applied. The patient tolerated the procedure well and was taken to recovery room in stable condition. [id number]/CPS #: [id number] [facility] HOSPITALStephenie
[2017-10-21] MEDS ORDERED: Scopolamine PATCH Remove* 1 NOTE MISC PATCH OFF ONE (05:51)
== END 2017-10-18 09:37 | disposition home or self-care (01) ==
LOC: OR 06:18
PROVIDERS: ATTEND Surgery
DX: K43.2 Incisional hernia without obstruction or gangrene (principal); E66.9 Obesity, unspecified; I10 Essential (primary) hypertension; E78.5 Hyperlipidemia, unspecified; M19.90 Unspecified osteoarthritis, unspecified site
CPT/HCPCS: A9270-GY; J1100; J1885; J2250; J2405; J2704; J3010

== ENCOUNTER 2018-04-11 10:29 | Day surgery (SDC) | payer MEDICARE, BC ==
--- NOTE | 2018-04-07 20:54 | HP ---
CC: Amada Teran NP * ADMISSION HISTORY AND PHYSICAL: DATE OF ADMISSION: 04/11/18. ATTENDING SURGEON: Dr. Darius Maciel * (ISAURO Dang dictating). CHIEF COMPLAINT: Recurrent incisional hernia. HISTORY OF PRESENT ILLNESS: This is a 68-year-old hypertensive, obese female, who underwent primary repair of a laparoscopic incisional hernia site at the umbilicus in September of this year. She did well over the first couple of months, but beginning about a month ago, she began to notice an intermittent bulge at the site associated with some pain, but not to suggest incarceration or strangulation. She really had no GI symptoms per se. She does not recall any antecedent event prior to onset of the bulge. She was seen in the office by Dr. Maciel on 03/29/18 at which time exam confirmed the presence of a fascial defect consistent with a recurrent incisional hernia. This was reducible. There were no other hernias noted. Dr. Maciel discussed with her the indications for repair as well as the risks, benefits, and alternatives. She would like to proceed as scheduled with repair of recurrent ventral incisional hernia with mesh. PAST MEDICAL HISTORY: Obesity, hypertension, hyperlipidemia, rectal prolapse, osteoarthritis. PAST SURGICAL HISTORY: Previous surgeries include laparoscopic robotic sigmoid resection with rectopexy for rectal prolapse in May 2017, laparoscopic cholecystectomy in 2016, right total knee arthroplasty in 2013, prior right knee arthroscopy for meniscal repair as well as prior surgical repair of a right leg fracture and tubal ligation. This was all in addition to the aforementioned hernia repair in September 2017. Previous history and physical notes that she had had a "difficult airway with previous intubation." No other surgical problems reported. CURRENT MEDICATIONS: 1. Lipitor 10 mg once daily. 2. Irbesartan 300 mg once daily. 3. Hydrochlorothiazide 12.5 mg once daily. 4. Stool softener once daily. 5. Metamucil as needed (has not needed recently). 6. Tramadol/APAP 37.5/325, 3 to 4 tablets per day p.r.n. arthritis pain. DRUG ALLERGIES: None known. FAMILY HISTORY: Negative for anesthesia problems, bleeding or clotting disorders. SOCIAL HISTORY: The patient is . 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 She denies use of tobacco. She drinks alcohol rarely and denies any other recreational drug use. REVIEW OF SYSTEMS: General: No recent constitutional symptoms or other acute illnesses. HEENT: No problems reported. Cardiovascular: History of hypertension. No chest pain, palpitations. Respiratory: No shortness of breath or chronic cough. GI: No problems reported. : No problems reported. BOARD OPERATOR: I did not inquire. Musculoskeletal: Her main complaint is left knee pain for which she is considering future knee replacement. She also has arthritis related pain in her shoulders and hands. Endocrine: No diabetes or thyroid dysfunction. PHYSICAL EXAMINATION GENERAL: Well-nourished, obese female, in no acute distress. VITAL SIGNS: Height 62 inches, weight 200 pounds. Blood pressure 114/80, pulse 74. HEENT: Pupils are equal, round, and reactive. EOMs intact. No conjunctival pallor. Oropharynx: No intraoral lesions. NECK: No lymphadenopathy, thyromegaly, or masses. LUNGS: Clear to auscultation. No wheezes. BREASTS: Not examined. HEART: Regular rate and rhythm. No murmur appreciated. ABDOMEN: Well healed surgical incisions, see also above for Dr. Maciel's exam. No other palpable masses, organomegaly. The exam is limited by body habitus. GENITALIA: Not done. RECTAL: Not done. BACK: No spinous process or CVA tenderness. EXTREMITIES: No edema. NEUROLOGICAL: Grossly intact. SKIN: Warm and dry. No suspicious rashes or lesions noted. IMPRESSION: Recurrent ventral incisional hernia. PLAN: Open repair, recurrent ventral incisional hernia with mesh. ISAURO DANG [id number]/[facility] #: [id number] CARLOS
[~2018-04-11 10:29] MED LIST changes: +Dexamethasone IV* 4 MG/ML 1 ML (4 MG) IV SLOW PU ONE; -DiMENhydriNATE IV* 50 MG/ML VIAL IV PUSH PRN; +Metoclopramide IV* 5 MG/ML 2 ML VIAL IV SLOW PU ONE; -Morphine INJ* 2 MG/ML 1 ML CARPUJECT IV PRN; -Naloxone* 0.4 MG/ML 1 ML VIAL IV PRN; -PROCHLORPERAZINE INJ 5 MG/ML 2 ML VIAL IV PRN; -Scopolamine 1.5 mg* PATCH TRANSDERM PRN; -fentaNYL* 50 MCG/ML 2 ML VIAL (100 MCG VIAL) IV PRN; -oxyCODONE/Acetamin 5/325 MG* TAB PO PRN
[2018-04-11] MEDS ORDERED: Dexamethasone IV* 4 MG/ML 1 ML (4 MG) ONE (10:47)
[2018-04-11] MEDS ORDERED: Metoclopramide IV* 5 MG/ML 2 ML VIAL ONE (10:47)
[2018-04-11] MEDS ORDERED: Famotidine IV* 10 MG/ML 2 ML (20 mg) ONE (10:47)
[2018-04-11] MEDS ORDERED: ceFAZolin 2 GM in NS PREMIX(*) 2 GM/100 ML BAG IVPB ONE (10:48)
[2018-04-11] MEDS ORDERED: fentaNYL* 50 MCG/ML 2 ML VIAL (100 MCG VIAL) ONE ×2 (11:08→15:15)
[2018-04-11] MEDS ORDERED: KETAMINE HCL* 50 MG/ML 10 ML VIAL ONE (11:08)
[2018-04-11] MEDS ORDERED: Midazolam* 1 MG/ML 2 ML VIAL (2 MG) ONE (11:08)
[2018-04-11] MEDS ORDERED: Dexmedetomidine* 200 MCG/2 ML 2 ML VIAL ONE (11:08)
[2018-04-11] MEDS ORDERED: Lidocaine 4% TOPICAL* 50 ML TOP.SOLN ONE (11:10)
[2018-04-11] MEDS ORDERED: Propofol* 10 MG/ML 20 ML BTL IV PUSH ONE (11:13)
[2018-04-11] MEDS ORDERED: Lidocaine 2% PF * 5 ML VIAL ONE (11:13)
[2018-04-11] MEDS ORDERED: Succinylcholine* 20 MG/ML 10 ML VIAL ONE (11:13)
[2018-04-11] MEDS ORDERED: Glycopyrrolate IV* 0.2 MG/ML 1 ML VIAL ONE (11:43)
[2018-04-11] MEDS ORDERED: Bupivacaine 0.25% W/EPI* 10 ML SDV ONE (13:54)
[2018-04-11] MEDS ORDERED: VASOPRESSIN 20 UNITS/ML 1 ML VIAL ONE (14:11)
[2018-04-11] MEDS ORDERED: Ketorolac INJ* 30 MG/ML 1 ML VIAL IV PRN (14:23)
[2018-04-11] MEDS ORDERED: Morphine INJ* 2 MG/ML 1 ML SYRINGE (TWO MG - NEW SYRINGE VERSION) IV PRN (14:23)
[2018-04-11] MEDS ORDERED: DiMENhydriNATE IV* 50 MG/ML VIAL IV PUSH PRN (14:23)
[2018-04-11] MEDS ORDERED: Ondansetron INJ* 2 MG/ML VIAL IV PRN (14:23)
[2018-04-11] MEDS ORDERED: HYDROcodone/ACETAMIN 5-325 MG* 1 TAB PO PRN (14:23)
[2018-04-11] MEDS ORDERED: Naloxone* 0.4 MG/ML 1 ML VIAL IV PRN (14:23)
[2018-04-11] MEDS ORDERED: Mivacurium Chloride* 20 MG/10 ML VIAL IV ONE (14:33)
[2018-04-11] MEDS ORDERED: EPHEDrine (Pressors)* 50 MG/ML VIAL ONE (14:37)
[2018-04-11] MEDS ORDERED: Ondansetron INJ* 2 MG/ML VIAL ONE ×2 (14:38→17:54)
[2018-04-11] MEDS ORDERED: Phenylephrine IV* 40 MCG/ML 10 ML SYRINGE ONE (14:38)
--- NOTE | 2018-04-11 15:03 | OP ---
Operative Report - Blank - Operative Report Date of Operation: 04/11/18 Note: Brief Operative Note: Preop Dx: recurrent ventral incisional hernia Postop DX: same Procedure: open repair ventral incisional hernia with mesh Anesthesia: GET Surgeon: Raheem Asst: ISAURO Mehta; OMAR Dickerson Fluids: 1500 ml EBL: < 25 ml Drains: none Specimen: hernia sac Findings: dictated
[2018-04-11] MEDS ORDERED: Ketorolac INJ* 30 MG/ML 1 ML VIAL ONE (15:16)
[2018-04-11] MEDS ORDERED: Acetaminophen TAB* 325 MG ONE (15:16)
[2018-04-11] MEDS: Acetaminophen TAB* 325 MG PO PRN ×2 (15:18→16:22)
[2018-04-11] MEDS: fentaNYL* 50 MCG/ML 2 ML VIAL (100 MCG VIAL) IV PRN ×4 (15:19→16:02)
[2018-04-11] MEDS ORDERED: Morphine INJ* 2 MG/ML 1 ML SYRINGE (TWO MG - NEW SYRINGE VERSION) ONE (15:34)
[2018-04-11] MEDS ORDERED: HYDROcodone/ACETAMIN 5-325 MG* 1 TAB ONE (16:15)
[2018-04-11] MEDS ORDERED: Acetaminophen ADULT LIQ* 650 MG/20.3 ML UDC ONE (16:15)
[2018-04-11 18:52] VITALS: BP 119/72
--- NOTE | 2018-04-11 23:20 | OP ---
DATE OF OPERATION: 04/11/18 [facility] DATE OF : 52 SURGEON: Darius Maciel M.D. FLEET DISPATCH MANAGER: ISAURO Dang ANESTHESIOLOGIST: Dr. Armstrong. ANESTHESIA: General with local. PRE-OP DIAGNOSIS: Recurrent ventral incisional hernia. POST-OP DIAGNOSIS: Recurrent ventral incisional hernia. OPERATIVE PROCEDURE: Open repair of recurrent ventral incisional hernia with 8 cm circular Bard dual-coated mesh. ESTIMATED BLOOD LOSS: Minimal. WOUND CLASSIFICATION: I. COMPLICATIONS: None. DRAINS: None. SPECIMENS: Hernia sac. DESCRIPTION OF PROCEDURE: Written informed consent was obtained, and the patient was taken to the operating room, placed in the supine position, and sequential compression devices and warming blanket were applied. General anesthesia was administered, and the abdomen was prepped and draped in usual sterile fashion. A time-out verification was completed. The hernia in question was just above the umbilicus from a previous laparoscopic repair and a vertical incision was made after infiltrating the subcutaneous tissue with 0.5% Marcaine. There was a hernia sac protruding up in the subcutaneous space, which was identified and sharply dissected down to the fascial edges, which appeared the fascial defect felt to be about 2 to 2.5 cm. I then attempted to try to develop the preperitoneal space with consideration of placing the mesh in the preperitoneal space, but this plane was much too scarred and fibrotic, and I did not feel that I would be able to develop a large enough space to place mesh. I then excised the hernia sac at the fascial level and passed this off for specimen. There were no intraabdominal adhesions to the anterior abdominal wall , and after measuring the fascial defect to be about 2 and 2.5 cm, I placed an 8 -cm circular dual-coated bard mesh intraperitoneally, and this was sutured to the underside of the abdominal wall with 4 separate horizontal mattress #1 Vicryl sutures. The mesh sat nicely without wrinkling and covered the defect with generous overlap. Hemostasis was assured. The [place] fascia was then closed in transverse orientation with interrupted #1 Ethibond sutures that were placed simply. The wound was irrigated. The subcutaneous tissue was closed with several layers of running 3-0 Vicryl suture. The skin was approximated with subcuticular 4-0 Vicryl suture. Steri-Strips and sterile dressings were applied. The patient tolerated the procedure well, was taken to the recovery room in stable condition. [id number]/[facility] #: [id number] MTDD
== END 2018-04-11 19:43 | disposition home or self-care (01) ==
LOC: OR 10:29
PROVIDERS: ATTEND Surgery
DX: K43.2 Incisional hernia without obstruction or gangrene (principal); I10 Essential (primary) hypertension; E78.5 Hyperlipidemia, unspecified; E66.01 Morbid (severe) obesity due to excess calories
CPT/HCPCS: 88302; A9270-GY; C1781; J0330; J0690; J1100; J1885; J2250; J2270; J2405; J2704; J2765; J3010

== ENCOUNTER 2018-11-10 05:39 | Inpatient (IN) | payer MEDICARE, BC ==
--- NOTE | 2018-11-01 11:45 | HP ---
HISTORY AND PHYSICAL: DATE OF ADMISSION/SURGERY: 11/10/18 DATE OF OFFICE VISIT: 10/31/18 SURGEON: Abigail Rios MD* (dictated by ISAURO Kaminski). PROCEDURE: Left total knee arthroplasty. CHIEF COMPLAINT: Left knee pain. HISTORY OF PRESENT ILLNESS: Ms. Oliver is a 68-year-old female with end-stage osteoarthritis of the left knee. She has failed conservative treatment and elected to proceed with a left total knee arthroplasty. PAST MEDICAL HISTORY: Hypertension, high cholesterol. PAST SURGICAL HISTORY: Cholecystectomy, right total knee arthroplasty, colectomy, right knee arthroscopy, ORIF of the right ankle, hernia repair x2, tonsillectomy, and tubal ligation. CURRENT MEDICATIONS: 1. Irbesartan 300 mg a day. 2. Tramadol every 6 hours as needed. 3. Lipitor 10 mg q.h.s. 4. Hydrochlorothiazide 12.5 mg daily. ALLERGIES: No known drug allergies. FAMILY HISTORY: Diabetes. SOCIAL HISTORY: She is a 68-year-old female, she lives with her . She does not smoke or use drugs. She uses occasional alcohol. REVIEW OF SYSTEMS: A complete 14-point review of systems was reviewed with the patient, was all negative and noncontributory. She denies a history of DVT, PE , hepatitis, HIV, or anesthesia problems. PHYSICAL EXAMINATION GENERAL: She is well developed, well nourished, in no acute distress. VITAL SIGNS: She stands 5 feet 1 inch tall, weighs 208 pounds. Her blood pressure is 126/76, her heart rate is 72. HEENT: Normocephalic, atraumatic. NECK: Supple. No palpable lymph nodes. PULMONARY: Lungs are clear to auscultation bilaterally. CARDIO: Regular rate and rhythm. Strong S1, S2. ABDOMEN: Soft, nontender, nondistended. NEUROLOGICAL: She is alert and oriented x3. MUSCULOSKELETAL: Left lower extremity: The skin is intact. There are no open wounds or abrasions. She has moderate effusion of the left knee. Some tenderness over the medial and lateral joint line. Range of motion is 5 to 120 degrees of flexion. There is a varus alignment of the knee. She has a 2+ dorsalis pedis pulse, intact sensation, and her lower extremity muscle group strengths are intact at 5/5. ASSESSMENT AND PLAN: Ms. Oliver is a 68-year-old female with end-stage osteoarthritis of the left knee. She has failed conservative treatment and elected to proceed with a left total knee arthroplasty. The surgery is scheduled for 11/10/[address] Rios discussed the risks and benefits of the surgery at today's visit and all of her questions were answered. She will follow up with Dr. Rios in 2 weeks after the surgery. ISAURO KAMINSKI [id number]/[facility] #: [id number] MTDStephenie
[~2018-11-10 05:39] MED LIST changes: -Buffered Lidocaine 0.9% SYRIN* 5 ML/SYR SYRINGE INTRADERM ONE; -Dexamethasone IV* 4 MG/ML 1 ML (4 MG) IV SLOW PU ONE; -Famotidine IV* 10 MG/ML 2 ML (20 mg) IV ONE; -Metoclopramide IV* 5 MG/ML 2 ML VIAL IV SLOW PU ONE; +Tranexamic Acid 1,000 MG in NS 0.9% 50 ML* (outpatient use) IV SCH
[2018-11-10] MEDS ORDERED: Lactated Ringers 1000 ML Bag* 1,000 ML IV SCH (06:00)
[2018-11-10] MEDS ORDERED: Buffered Lidocaine 1% SYRIN* 1 ML/SYRINGE INTRADERM ONE (06:15)
[2018-11-10] MEDS ORDERED: ceFAZolin 2 GM in NS PREMIX(*) 2 GM/100 ML BAG IVPB ONE (06:15)
[2018-11-10] MEDS: Buffered Lidocaine 1% SYRIN* 1 ML/SYRINGE INTRADERM ONE ×2 (06:23→06:33)
[2018-11-10] MEDS ORDERED: Bupivacaine 0.5%* 50 ML VIAL ONE (06:48)
[2018-11-10] MEDS ORDERED: Bupivacaine 0.25% SDV* 30 ML ONE ×2 (07:15→07:24)
[2018-11-10] MEDS ORDERED: Midazolam* 1 MG/ML 5 ML VIAL (5 MG) ONE ×2 (07:27→08:27)
[2018-11-10] MEDS ORDERED: Povidone Iodine 5% OPTH* 30 ML BTL ONE (07:56)
[2018-11-10] MEDS ORDERED: ROPIVACAINE 5 MG/ML 30 ML BTL (0.5%) ONE (08:00)
[2018-11-10] MEDS ORDERED: Dexamethasone IV* 4 MG/ML 1 ML (4 MG) ONE (08:02)
[2018-11-10] MEDS ORDERED: fentaNYL* 50 MCG/ML 2 ML VIAL (100 MCG VIAL) ONE (08:02)
[2018-11-10] MEDS ORDERED: Ondansetron INJ* 2 MG/ML VIAL IV PRN ×2 (08:26→10:05)
[2018-11-10] MEDS ORDERED: fentaNYL* 50 MCG/ML 2 ML VIAL (100 MCG VIAL) IV PRN (08:26)
[2018-11-10] MEDS ORDERED: Naloxone* 0.4 MG/ML 1 ML VIAL IV PRN (08:26)
[2018-11-10] MEDS ORDERED: Scopolamine 1.5 mg* PATCH TRANSDERM PRN (08:26)
[2018-11-10] MEDS ORDERED: DiMENhydriNATE IV* 50 MG/ML VIAL IV PUSH PRN (08:26)
[2018-11-10] MEDS ORDERED: oxyCODONE TAB* 5 MG TAB PO PRN (08:26)
[2018-11-10] MEDS ORDERED: HYDROmorphone INJ1* 1 MG/ML SYRINGE IV PRN (08:26)
[2018-11-10] MEDS ORDERED: Ketorolac INJ* 30 MG/ML 1 ML VIAL ONE (09:22)
[2018-11-10] MEDS ORDERED: Ondansetron INJ* 2 MG/ML VIAL ONE (09:23)
[2018-11-10] MEDS ORDERED: oxyCODONE/Acetamin 5/325 MG* TAB PO PRN (10:05)
[2018-11-10] MEDS ORDERED: Ondansetron TAB* 4 MG PO PRN (10:05)
[2018-11-10] MEDS ORDERED: Polyethylene Glycol 3350* 17 GM PACKET PO PRN (10:05)
[2018-11-10] MEDS ORDERED: diPHENhydraMINE IV* 50 MG/ML 1 ml VIAL (BENADRYL) IV PRN (10:05)
[2018-11-10] MEDS ORDERED: Bisacodyl SUPP* 10 MG SUPP PR PRN (10:05)
[2018-11-10] MEDS ORDERED: Magnesium Hydroxide LIQ* 30 ML UDC PO PRN (10:05)
[2018-11-10] MEDS ORDERED: Bupivacaine 0.5% SDV PF* 30ML VIAL ONE (10:57)
[2018-11-10] MEDS ORDERED: traMADol TAB* 50 MG ONE (11:37)
[2018-11-10] MEDS: traMADol TAB* 50 MG PO PRN (11:39)
[2018-11-10] MEDS: Lactated Ringers 1000 ML Bag* 1,000 ML IV SCH ×2 (12:01→22:09)
[2018-11-10] MEDS: Acetaminophen TAB* 325 MG PO SCH ×2 (12:23→17:38)
--- NOTE | 2018-11-10 13:50 | CONS ---
CC: Dr. Rios* CONSULTATION REPORT: DATE OF CONSULT: 11/10/18 REQUESTING PROVIDER: Dr. Abigail Rios. REASON FOR CONSULT: Co-management of chronic medical conditions. HISTORY OF PRESENT ILLNESS: Evie Oliver is a 68-year-old white female with past medical history of hypertension, hyperlipidemia and osteoarthritis,who is status post left total knee arthroplasty day 0. She failed outpatient conservative medical treatment of left knee osteoarthritis and elected to have surgery today. Dr. Rios has consulted Hospital Medicine for co-management of chronic medical conditions. The patient is awake in the PACU. She is feeling well and comfortable. Nursing reports that when she falls asleep she is having apneic events. The patient is unsure if she has obstructive sleep apnea as she has never been evaluated with a sleep study. The patient is denying any discomfort with breathing or shortness of breath. Additionally, denies chest pain, tachycardia , palpitations, dizziness, headache, visual changes, abdominal pain, nausea and vomiting. PAST MEDICAL HISTORY: 1. Hypertension. 2. Hyperlipidemia. 3. Osteoarthritis. PAST SURGICAL HISTORY: Cholecystectomy, colectomy, tubal ligation, tonsillectomy, right TKA, right knee arthroscopy, ORIF of right ankle, hernia repair x2. HOME MEDICATIONS: 1. Tramadol/acetaminophen 37.5/325 one tab p.o. q.i.d. 2. Irbesartan 300 mg p.o. daily. 3. Hydrochlorothiazide 12.5 mg p.o. daily. 4. Lipitor 10 mg p.o. daily. ALLERGIES: No known drug allergies. FAMILY HISTORY: The patient's father had a stroke in his late 70s. Otherwise, no family history of [place]. The patient's family history does include diabetes mellitus type 2. SOCIAL HISTORY: The patient lives with her . The patient denies use of tobacco products, drugs and alcohol. REVIEW OF SYSTEMS: An 11-system review of systems was completed and all pertinent positives and negatives are in the HPI above. All other systems are negative. PHYSICAL EXAM: General: Obese white female, lying upright in PACU stretcher, feeling comfortable and in no acute distress. at bedside. Head: Atraumatic and normocephalic. Eyes: PERRL. EOMI. Sclerae anicteric. ENT: Mucous membranes moist. Neck: Supple without JVP. Cardio: Regular rate and rhythm without murmurs, rubs or gallops. Respiratory: Lungs are clear to auscultation. Chest expansion is symmetrical. Abdomen: Soft, nontender and nondistended. No masses palpated. Extremities: No edema or clubbing. Neuro: Cranial nerves II through XII are grossly intact. The patient is alert and oriented x3. Skin: Warm, dry and intact. DIAGNOSTIC STUDIES/LAB DATA: None since admission. ASSESSMENT AND PLAN: Evie Oliver is a 68-year-old white female with past medical history of hypertension, hyperlipidemia, and osteoarthritis. She is status post left total knee arthroplasty performed by Dr. Rios. Hospital Medicine has been consulted for co-management of her chronic medical conditions. 1. Hypertension. The patient has been normotensive since arriving to the PACU. We will continue to monitor. Continue home hydrochlorothiazide and ARB, patient takes irbesartan at home. 2. Hyperlipidemia. Continue home Lipitor. 3. Apneic events in PACU. The patient experiencing apneic events per nursing while patient is on room air and asleep. The patient has never been evaluated for obstructive sleep apnea with a sleep study. Ordered continuous pulse oximetry at bedtime to monitor. If this continues, then it may be beneficial for patient to have outpatient sleep study after discharge. 4. Status post left total knee arthroplasty, management per Orthopedic Surgery. 5. DVT prophylaxis: Per Orthopedic Surgery. 6. Disposition: Per Orthopedic Surgery. Thank you for allowing us to participate in the care of this patient. We will follow during this admission. ISAURO DOUGLAS [id number]/[facility] #: [id number] ADDENDUM TO CONSULTATION CC: Amada Teran NP; Dr. Rios* DATE OF CONSULTATION: 11/10/18. PRIMARY CARE PROVIDER: Amada Teran NP REQUESTING PHYSICIAN: Dr. Rios. Case was reviewed and discussed with ISAURO Douglas. Ms. Oliver is a 68-year-old lady with a past medical history of DJD, hyperlipidemia, hypertension, who had complaints of left knee pain that failed conservative treatment. She presented today for an elective left total knee arthroplasty with Dr. Rios and the hospitalist service was consulted to help manage her comorbidities. The patient's blood pressure has been controlled and we will continue her usual medications with holding parameters. There was also some concern for snoring and hypoxia. The patient has never been formally diagnosed with sleep apnea, but we will monitor her oxygen level as she does have risk factors. The hospitalist service will continue to follow up this patient with you. Dali Rothman MD Addendum Dictated Date/Time: 11/10/18 1258 Addendum Transcribed Date/Time 11/10/18 1325 [id number]/[facility] #: [id number] CARLOS
--- NOTE | 2018-11-10 13:58 | CONS ---
CC: Amada Teran NP; Dr. Rios* CONSULTATION REPORT: ADDENDUM: PRIMARY CARE PROVIDER: Amada Teran NP REQUESTING PHYSICIAN: Dr. Rios. Ms. Oliver is a 68-year-old lady with a past medical history of DJD, hyperlipidemia, hypertension, who had complaints of left knee pain that failed conservative treatment. She presented today for an elective left total knee arthroplasty with Dr. Rios and the hospitalist service was consulted to help manage her comorbidities. The patient's blood pressure has been controlled and we will continue her usual medications with holding parameters. There was also some concern for snoring and hypoxia. The patient has never been formally diagnosed with sleep apnea, but we will monitor her oxygen level as she does have risk factors. The hospitalist service will continue to follow up this patient with you. [id number]/[facility] #: [id number] MTDStephenie
[2018-11-10] MEDS: oxyCODONE/Acetamin 5/325 MG* TAB PO PRN ×3 (14:37→23:18)
[2018-11-10] MEDS: Morphine 4 MG/ML VIAL (1 ml) 4 MG/ML VIAL IV PRN ×2 (16:24→23:26)
[2018-11-10] MEDS: ceFAZolin 1 GM ADVAN(*) 1 GM in NS 0.9% 50 ML* 50 ML IVPB SCH ×2 (16:28→23:56)
--- NOTE | 2018-11-10 16:46 | OP ---
Operative Report - Blank - Operative Report Date of Operation: 11/10/18 Note: LINDSEY DUBOIS 1950 Date of Surgery: 11/10/18 Abigail Rios MD Editor Magazine: Edna BOX did help throughout the procedure with preparation of the knee, wound retraction, manipulation of the knee, and wound closure. Anesthesiologist: David Lebron MD Anesthesia Type: Spinal Preoperative Diagnosis: Left severe degenerative osteoarthritis of the knee Postoperative Diagnosis: As above Procedure Performed: Left Total Knee Arthroplasty Tourniquet time: 45 minutes Complications: None Specimen: Bone and cartilage from the left knee joint sent to pathology. Hardware Used: Cemented Enriquez and Nephew total knee hardware was used - For the femur a size 5 left narrow legion posterior stabilized femoral component, for the tibia a size 3 left patricio II tibial baseplate, for the insert a size 11mm 3-4 posterior stabilized articular polyethylene insert, and for the patella a size 32 3-peg all poly patella. Brief History/Indication: LINDSEY DUBOIS was known in clinic and had a history of severe left knee pain and swelling. She failed conservative treatment with anti-inflammatories, pain pills, intra-articular injections and physical therapy. She elected to undergo left total knee arthroplasty due to continued pain and decreased quality of life. Radiographs showed severe end stage osteoarthritis of the knee with bone on bone contact. Informed consent was obtained from the patient. She understood the risks of surgery included but were not limited to: bleeding, infection, damage to nearby structures, intraoperative fracture, nerve palsy, failure of the hardware, early loosening, knee stiffness or loss of motion, anesthesia complications, stroke, heart attack , blood clot and . She wished to proceed. Intra-Operative Findings: Intraoperatively the patient was noted to have severe loss of cartilage in all 3 compartments of the knee. Description of the Procedure: LINDSEY DUBOIS was identified in the preanesthesia unit. Her left knee was marked as the correct operative side. Informed consent was signed and placed in the chart. The patient was taken to the operating room and placed under anesthesia without complication. A paredes catheter was placed. A tourniquet was placed on the left thigh. The left lower extremity was prepped and draped in the usual sterile fashion. Preoperative time-out was made to correctly identify the patient, side and site. Appropriate intraoperative antibiotics were given within one hour of incision. Tourniquet was inflated. A midline incision was made and carried sharply down to the extensor mechanism. A new 10 blade was used to make a standard medial parapatellar arthrotomy. The patella was subluxed laterally. Electrocautery was used to dissect soft tissue off the superomedial tibia to the midsagittal plane. The knee was flexed up. The anterior horn of the lateral meniscus and the ACL were sharply incised. A drill was used to enter the distal femur. The intramedullary distal femoral cutting guide was pinned on the distal femur. The oscillating saw was used to make the distal femoral cut. The external rotation guide was pinned on the distal femur and the distal femur was sized to a size 5. The size 5 multi-cutting jig was pinned on the distal femur. The oscillating saw was used to make the appropriate 4 chamfer cuts. Next the PCL was completely released. The extramedullary tibial cutting guide was pinned on the proximal tibia and the oscillating saw was used to make the proximal tibial cut perpendicular to the mechanical axis of the tibia. The bone was carefully removed. The knee was brought out into full extension. The spacer block was placed and had excellent fit with the knee in full extension. The medial and lateral ligaments were well balanced. The flexion and extension gaps were well balanced. The knee was flexed up. Lamina tire builder operator was placed both medially and laterally. Any remaining meniscus was removed with electrocautery. Curved osteotome was used to remove any posterior osteophytes. The tibial tray and drop elaine were placed and confirmed a satisfactory tibial cut. The size 5 left femoral trial was impacted onto the distal femur. This trial had excellent fit and stability. The box for the posterior stabilized implant was prepared using a box cut osteotome and a reamer. Next a tibial tray trial and 9 mm insert trial was placed. The knee was taken through a range of motion and had full extension to 130 degrees of flexion. Patellofemoral tracking was satisfactory. The patella was inverted and sized to a size 32. Three peg holes were drilled through the size 32 drill guide. The trial patella was placed and the knee was taken through a range of motion. There was satisfactory patellofemoral tracking. All trials were removed. The tibia was subluxed anteriorly and sized to a size 3. The proximal tibial was prepared with a size 3-4 keel punch. All bony cut surfaces were irrigated with sterile saline and dried. Final implants were cemented into place starting with the tibia, followed by the femur, and last the patella. A 9 mm insert trial was placed and the knee was brought into full extension. Tourniquet was turned down and the knee was copiously irrigated with sterile saline. Electrocautery was used to obtain meticulous hemostasis. Once the cement had fully cured, the insert trial was removed. Any excess cement was removed from around the hardware and capsule. Final insert chosen was a 11 mm posterior stabilized Patricio II articular insert size 3-4. Stability of the insert was checked and noted to be stable. The extensor mechanism was closed using number 1 vicryls. The rest of the incision was closed in a layered fashion using 0 and 2-0 vicryls. The skin was closed using 3-0 nylon suture. Sterile xeroform, 4x4s and webril were used to cover the incision. Tanner wrap and cold pack were used to cover the dressings. The patients anesthesia was reversed without difficulty. She was taken to the PACU in stable condition. Intended weight-bearing will be as tolerated.
--- NOTE | 2018-11-10 17:07 | PN ---
Progress Note - Progress Note Date of Service: 11/10/18 Note: resting comfortably without significant complaints of pain; able to dorsi flex/ plantar flex, 2+ DP pulse, intact sensation, dressing c/d
[2018-11-10] MEDS: oxyCODONE TAB* 5 MG TAB PO PRN ×2 (17:34→21:45)
[2018-11-10] MEDS: Atorvastatin* 10 MG TAB PO SCH (17:34)
[2018-11-10] MEDS: Losartan TAB* 25 MG PO SCH (17:34)
[2018-11-10] MEDS ORDERED: IRBESARTAN 300 MG PO SCH (18:00)
[2018-11-10] MEDS: Docusate CAP* 100 MG PO SCH (20:43)
[2018-11-10] MEDS: Magnesium Hydroxide LIQ* 30 ML UDC PO SCH (20:43)
[2018-11-10] MEDS ORDERED: Melatonin 3 MG TAB PO ONE (21:44)
[2018-11-10] MEDS: Melatonin 3 MG TAB PO PRN (21:46)
[2018-11-10] MEDS: Cyclobenzaprine TAB* 10 MG PO PRN (23:19)
[2018-11-11] MEDS: Acetaminophen TAB* 325 MG PO SCH ×3 (01:35→21:46)
[2018-11-11] MEDS: oxyCODONE TAB* 5 MG TAB PO PRN ×3 (02:00→10:07)
[2018-11-11] MEDS: oxyCODONE/Acetamin 5/325 MG* TAB PO PRN ×4 (04:01→21:40)
[2018-11-11] MEDS: traMADol TAB* 50 MG PO PRN ×2 (05:47→12:52)
[2018-11-11] MEDS: Apixaban* 2.5 MG TAB PO SCH ×2 (07:34→21:41)
[2018-11-11] MEDS: Docusate CAP* 100 MG PO SCH ×2 (07:34→21:41)
[2018-11-11] MEDS: Cyclobenzaprine TAB* 10 MG PO PRN ×3 (07:34→21:49)
[2018-11-11] MEDS: Hydrochlorothiazide TAB* 25 MG PO SCH (07:35)
[2018-11-11] MEDS: ceFAZolin 1 GM ADVAN(*) 1 GM in NS 0.9% 50 ML* 50 ML IVPB SCH (07:38)
[2018-11-11] MEDS: Lactated Ringers 1000 ML Bag* 1,000 ML IV SCH (07:38)
[2018-11-11] MEDS: Magnesium Hydroxide LIQ* 30 ML UDC PO SCH ×2 (08:18→21:41)
[2018-11-11 08:25] LABS: Hematocrit 34 % (33-41); Hemoglobin 11.2 g/dL (12.0-16.0); Platelet Count 224 10^3/uL (150-450)
[2018-11-11 08:42] LABS: BUN/Creatinine Ratio 22.9 (8-20); Calcium 9.1 mg/dL (8.6-10.3); EGFR Non-African American 68.6 (>60); Potassium 4.3 mmol/L (3.5-5.0)
[2018-11-11] MEDS ORDERED: Hydrochlorothiazide TAB* 25 MG PO SCH (09:00)
--- NOTE | 2018-11-11 12:12 | PN ---
Progress Note - Progress Note Date of Service: 11/11/18 SOAP: Subjective: []Patient seen OOB in chair, a little drowsy from pain medications. Denies SOB , CP, dizziness. Feels she may be able to go home tomorrow. Objective: [] Vital Signs Temp 97.4 F 11/11/18 11:12 Pulse 99 11/11/18 11:12 Resp 17 11/11/18 11:12 BP 140/74 11/11/18 11:12 Pulse Ox 93 11/11/18 11:12 Intake & Output 11/10/18 11/11/18 11/11/18 18:59 06:59 18:59 Intake Total 2550 3285 1366 Output Total 1600 1150 150 Balance 950 2135 1216 Intake: IV Fluids 2350 1035 991 ABX - CEFAZOLIN 55 LR 980 991 TRANSEXAMIC ACID 1G 50 lr 2300 IVPB 55 ABX - CEFAZOLIN 55 Oral 200 2250 320 Output: Urine 150 Vega 1400 1150 Estimated Blood Loss 200 Laboratory Results - last 24 hr 11/11/18 11/11/18 08:17 08:17 Hgb 11.2 L Hct 34 Plt Count 224 MPV 9.0 Sodium 138 Potassium 4.3 Chloride 104 Carbon Dioxide 27 Anion Gap 7 BUN 19 Creatinine 0.83 Est GFR ( Amer) 83.0 Est GFR (Non-Af Amer) 68.6 BUN/Creatinine Ratio 22.9 H Glucose 146 H Calcium 9.1 Left knee dressings are dry and intact calf NT and soft + DF left ankle sensation and circulation intact distally Assessment: []s/p left total knee arthroplasty POD #1 Plan: []PT/OT WBAT LLE Eliquis for DVT prophylaxis Probable discharge home 11/12
[2018-11-11] MEDS: Morphine 4 MG/ML VIAL (1 ml) 4 MG/ML VIAL IV PRN (13:48)
[2018-11-11] MEDS: Morphine TAB Extended Release (*) 15 MG TAB.ER PO SCH (14:27)
[2018-11-11] MEDS: Losartan TAB* 25 MG PO SCH (17:13)
[2018-11-11] MEDS: Atorvastatin* 10 MG TAB PO SCH (17:13)
[2018-11-12] MEDS: oxyCODONE/Acetamin 5/325 MG* TAB PO PRN ×4 (02:05→19:16)
[2018-11-12] MEDS: Morphine TAB Extended Release (*) 15 MG TAB.ER PO SCH ×2 (02:05→14:49)
[2018-11-12] MEDS: Acetaminophen TAB* 325 MG PO SCH ×3 (06:20→17:27)
[2018-11-12 06:26] LABS: Hematocrit 32 % (33-41); Hemoglobin 10.7 g/dL (12.0-16.0)
[2018-11-12 07:02] LABS: Platelet Count Platelets clumped. 10^3/uL (150-450)
[2018-11-12] MEDS: Docusate CAP* 100 MG PO SCH ×2 (09:12→22:16)
[2018-11-12] MEDS: Magnesium Hydroxide LIQ* 30 ML UDC PO SCH ×2 (09:12→22:16)
[2018-11-12] MEDS: Apixaban* 2.5 MG TAB PO SCH ×2 (09:12→22:15)
[2018-11-12] MEDS: Hydrochlorothiazide TAB* 25 MG PO SCH (09:14)
--- NOTE | 2018-11-12 09:48 | PN ---
Progress Note - Progress Note Date of Service: 11/12/18 SOAP: Subjective: Pt had pain overnight. Improved with MS Contin. Denies CP/SOB, F/C, calf pain. Objective: PE- 68 y/o WDWN F NAD, A&Ox3 LLE- dressing changed, inc c/d/i, calf soft NT, +DF/PF ankle, SILT distally Vital Signs Temp Pulse Resp BP Pulse Ox 97.9 F 103 20 117/61 93 11/12/18 08:06 11/12/18 08:06 11/12/18 08:25 11/12/18 08:06 11/12/18 08:06 Laboratory Results - last 24 hr 11/12/18 05:09 Hgb 10.7 L Hct 32 L Plt Count Platelets clumped. H MPV Not Reportable Clumped Platelets Present Assessment: []s/p left total knee arthroplasty POD #2 Plan: []PT/OT WBAT LLE Eliquis for DVT prophylaxis Cont MS contin and percocet for pain Plan DC to home with outpt PT 11/13
--- NOTE | 2018-11-12 09:49 | PN ---
Subjective Date of Service: 11/12/18 Interval History: HD # 2 on 11/12 Consult ID: 68 yo F HTN, HLD hx of R TKR now here s/p L TKR Overnight, no acute events, VSS, voiding freely. Labs: h/h stable, plt clumped, BMP 4/12 normal This morning, very pleasant woman seen in chair eating breakfast. Offers no complaints, no CP, no SOB, no ZUNIGA, pain is manageable. Objective Active Medications: Acetaminophen (Tylenol Tab*) 975 mg PO Q8H [facility] Last Admin: 11/12/18 06:20 Dose: Not Given Apixaban (Eliquis*) 2.5 mg PO BID [facility] Last Admin: 11/12/18 09:12 Dose: 2.5 mg Atorvastatin Calcium (Lipitor*) 10 mg PO QPM [facility] Last Admin: 11/11/18 17:13 Dose: 10 mg Bisacodyl (Dulcolax Supp*) 10 mg OR DAILY PRN PRN Reason: constipation Cyclobenzaprine HCl (Flexeril Tab*) 10 mg PO TID PRN PRN Reason: SPASMS Last Admin: 11/11/18 21:49 Dose: 10 mg Diphenhydramine HCl (Benadryl Iv*) 12.5 mg IV Q6H PRN PRN Reason: PRURITIS Docusate Sodium (Colace Cap*) 100 mg PO BID [facility] Last Admin: 11/12/18 09:12 Dose: 100 mg Hydrochlorothiazide (Hydrodiuril Tab*) 12.5 mg PO QAM [facility] Last Admin: 11/12/18 09:14 Dose: Not Given Lactated Ringer's (Lactated Ringers 1000 Ml Bag*) 1,000 mls @ 100 mls/hr IV PER RATE [facility] Last Admin: 11/11/18 07:38 Dose: 100 mls/hr Lactulose (Lactulose*) 30 ml PO Q6H PRN PRN Reason: constipation Losartan Potassium (Cozaar Tab*) 100 mg PO QPM [facility] Last Admin: 11/11/18 17:13 Dose: 100 mg Magnesium Hydroxide (Milk Of Magnesia Liq*) 30 ml PO BID [facility] Last Admin: 11/12/18 09:12 Dose: 30 ml Magnesium Hydroxide (Milk Of Magnesia Liq*) 30 ml PO Q6H PRN PRN Reason: constipation Melatonin (Melatonin) 3 mg PO BEDTIME PRN PRN Reason: SLEEP Last Admin: 11/10/18 21:46 Dose: 3 mg Morphine Sulfate (Morphine 4 Mg/Ml Vial (1 Ml)) 2 mg IV Q2H PRN PRN Reason: PAIN Last Admin: 11/11/18 13:48 Dose: 2 mg Morphine Sulfate (Ms Contin(*)) 15 mg PO Q12H [facility] Last Admin: 11/12/18 02:05 Dose: 15 mg Ondansetron HCl (Zofran Inj*) 4 mg IV Q6H PRN PRN Reason: nausea Ondansetron HCl (Zofran Tab*) 4 mg PO Q6H PRN PRN Reason: NAUSEA Oxycodone HCl (Roxycodone Tab*) 10 mg PO Q4H PRN PRN Reason: SEVERE PAIN Last Admin: 11/11/18 10:07 Dose: 10 mg Oxycodone/Acetaminophen (Percocet 5/325 Tab*) 1 tab PO Q4H PRN PRN Reason: PAIN Oxycodone/Acetaminophen (Percocet 5/325 Tab*) 2 tab PO Q4H PRN PRN Reason: PAIN Last Admin: 11/12/18 06:17 Dose: 2 tab Polyethylene Glycol/Electrolytes (Miralax*) 17 gm PO DAILY PRN PRN Reason: Constipation Tramadol HCl (Ultram*) 50 mg PO Q6H PRN PRN Reason: PAIN Last Admin: 11/11/18 12:52 Dose: 50 mg Vital Signs - 8 hr 11/12/18 11/12/18 11/12/18 02:05 03:53 06:17 Temperature 98.0 F Pulse Rate 106 Respiratory 18 18 18 Rate Blood Pressure 120/54 (mmHg) O2 Sat by Pulse 91 Oximetry 11/12/18 11/12/18 11/12/18 07:30 08:00 08:06 Temperature 97.9 F Pulse Rate 100 103 Respiratory 20 18 Rate Blood Pressure 117/61 (mmHg) O2 Sat by Pulse 93 93 Oximetry 11/12/18 08:25 Temperature Pulse Rate Respiratory 20 Rate Blood Pressure (mmHg) O2 Sat by Pulse Oximetry Oxygen Devices in Use Now: Nasal Cannula Appearance: Pleasant woman in NAD Ears/Nose/Mouth/Throat: Mucous Membranes Moist Respiratory: Symmetrical Chest Expansion and Respiratory Effort, Clear to Auscultation Cardiovascular: NL Sounds; No Murmurs; No JVD, RRR Abdominal: NL Sounds; No Tenderness; No Distention, No Hepatosplenomegaly Lymphatic: No Cervical Adenopathy Extremities: No Edema Skin: No Rash or Ulcers Neurological: Alert and Oriented x 3 Result Diagrams: 11/12/18 05:09 11/11/18 08:17 Assess/Plan/Problems-Billing Assessment: 68 yo F HTN, HLD s/p L TKR - Patient Problems (1) Status post left knee replacement Current Visit: Yes Status: Acute Code(s): Z96.652 - PRESENCE OF LEFT ARTIFICIAL KNEE JOINT SNOMED Code(s): 5086221865945 Comment: - Pain mgmt per ortho (2) Hypertension Current Visit: Yes Status: Acute Code(s): I10 - ESSENTIAL (PRIMARY) HYPERTENSION SNOMED Code(s): 66174123 Comment: - HCTZ 12.5mg daily, Losartan 100mg in place of home ibersartan well controlled, can increase PRN (3) Hyperlipidemia Current Visit: Yes Status: Acute Code(s): E78.5 - HYPERLIPIDEMIA, UNSPECIFIED SNOMED Code(s): 50973247 Comment: - Continue atorvastatin (4) DVT prophylaxis Current Visit: Yes Status: Acute Code(s): MCD1573 - SNOMED Code(s): 269922401 Comment: - apixiban per ortho (5) Full code status Current Visit: Yes Status: Acute Code(s): Z78.9 - OTHER SPECIFIED HEALTH STATUS SNOMED Code(s): 648605274 Status and Disposition: Disposition per orthopedics. We will follow along with Ms. Benito wright until d/c , thank you for this consult.
[2018-11-12] MEDS: oxyCODONE TAB* 5 MG TAB PO PRN (13:17)
[2018-11-12] MEDS: Atorvastatin* 10 MG TAB PO SCH (17:26)
[2018-11-12] MEDS: Losartan TAB* 25 MG PO SCH (17:27)
[2018-11-12] MEDS: Melatonin 3 MG TAB PO PRN (22:16)
[2018-11-13] MEDS: oxyCODONE/Acetamin 5/325 MG* TAB PO PRN ×3 (01:43→11:54)
[2018-11-13] MEDS: Acetaminophen TAB* 325 MG PO SCH ×2 (01:44→10:14)
[2018-11-13] MEDS: Morphine TAB Extended Release (*) 15 MG TAB.ER PO SCH (03:00)
[2018-11-13] MEDS: Hydrochlorothiazide TAB* 25 MG PO SCH (07:59)
[2018-11-13] MEDS: Magnesium Hydroxide LIQ* 30 ML UDC PO SCH (07:59)
[2018-11-13] MEDS: Docusate CAP* 100 MG PO SCH (08:01)
[2018-11-13] MEDS: Apixaban* 2.5 MG TAB PO SCH (08:03)
[2018-11-13] MEDS ORDERED: Scopolamine PATCH Remove* 1 NOTE MISC PATCH OFF ONE (08:29)
[2018-11-13 08:37] LABS: Hematocrit 31 % (33-41); Hemoglobin 10.2 g/dL (12.0-16.0); Mean Platelet Volume 9.3 fL (7.4-10.4); Platelet Count 200 10^3/uL (150-450)
--- NOTE | 2018-11-13 09:29 | PN ---
Progress Note - Progress Note Date of Service: 11/13/18 SOAP: Subjective: Pt is doing well. Pain is controlled. Denies N/T, F/C or CP/SOB. Objective: PE- 68 y/o WDWN F NAD, A&Ox3 LLE- dressing changed inc c/d/i, calf soft NT, +DF/PF ankle, +2 DP pulse, SILT distally Vital Signs Temp Pulse Resp BP Pulse Ox 98.7 F 96 16 119/58 93 11/13/18 07:36 11/13/18 07:36 11/13/18 07:36 11/13/18 07:36 11/13/18 07:36 Laboratory Results - last 24 hr 11/13/18 08:31 Hgb 10.2 L Hct 31 L Plt Count 200 MPV 9.3 Assessment: []s/p left total knee arthroplasty POD #3 Plan: []PT/OT WBAT LLE Eliquis for DVT prophylaxis Cont MS contin and percocet for pain Plan DC to home with outpt PT today
--- NOTE | 2018-11-13 11:12 | DS ---
Orthopedic Discharge Summary - Discharge Summary Date of Admission:11/10/18 Date of Discharge: 11/13/18 Date of Surgery: [11/10/18 Attending Orthopedic Provider: Dr. Rios Pre-operative Diagnosis: left knee OA Operative Procedure: Left total knee arthroplasty Condition of Patient: Stable History: LINDSEY DUBOIS is a 68 year old F with years of increasingly severe left knee pain due to OA. Patient has failed conservative management and has elected to undergo a left total knee replacement Hospital Course: LINDSEY was admitted to [facility] on 11/10/18. Patient underwent a left TKA without complication followed by a brief recovery in PACU and transfer to the Short Stay Surgical Unit in stable condition. Our hospitalist service, physical therapy and occupational therapy also participated in this patients care. Post-op day 1: patient was alert and in no acute distress. Dressing was clean, dry and intact. Operative extremity dorsiflexion and plantarflexion intact, sensation intact to light touch distally , DP2+. Post-op day two: dressing was changed, incision was clean, dry and intact. Patient was deemed to be medically and orthopedically stable for discharge home by POD 3. Physical therapy goals were met. Home Medications Medication Instructions Recorded Confirmed Type Atorvastatin* [Lipitor 10 MG*] 10 mg PO QPM 10/12/13 11/10/18 History Hydrochlorothiazide TAB* 12.5 mg PO QAM 02/15/17 11/10/18 History [Hydrodiuril TAB*] Irbesartan 300 mg PO QPM 04/05/18 11/10/18 History Apixaban* [Eliquis*] 2.5 mg PO BID tab 11/13/18 Rx Cyclobenzaprine TAB* [Flexeril 10 10 mg PO TID PRN tab 11/13/18 Rx MG TAB*] Docusate CAP* [Colace Cap*] 100 mg PO BID cap 11/13/18 Rx Morphine TAB Extended Rel(*) [Ms 15 mg PO Q12H tab.er 11/13/18 Rx Contin(*)] oxyCODONE/Acetamin 5/325 MG* 1 tab PO Q4H PRN tab 11/13/18 Rx [Percocet 5/325 TAB*] oxyCODONE/Acetamin 5/325 MG* 2 tab PO Q4H PRN tab 11/13/18 Rx [Percocet 5/325 TAB*] Discharge Instructions following Orthopedic Surgery: Activity: * Weight Bearing as tolerated * Continue physical therapy and occupational therapy exercises as shown Wound care: * OK to shower on post-op day 3, no bathing, swimming, or submerging wound. * Use gentle soap, pat dry. Cover with gauze, ALICIA wrap or tape. * Visiting home nurse to do wound checks. Call Orthopedic office for: * Increased drainage * Redness * Increased pain * Fever Go to ER with shortness of breath or chest pain. Diet: * Regular diet * Increase fluids and fiber to prevent constipation. * Continue to use stool softeners, call office if no bowel motion within 48 hours. Medications See Home Medication List in your packet for medications that you should take after discharge. DVT Prophylaxis w for further dosing instructions. Call orthopedic office if you do not receive dosing instructions. Eliquis Dosin.5 mg, 1 tab every 12 hours x 30 days Pain Control: Percocet 5/325 mg 1-2 tabs by mouth every 4-6 hours as needed for pain. Maximum of 10 tabs per day. Please note that Percocet contains Tylenol (acetaminophen). Maximum daily dose of Tylenol is 4000 mg from all sources. MS Contin take 1 tab every 12 hours x 7 days for pain Cyclobenzaprine 10 mg take 1 tab every 8 hours as needed muscle spasms/pain Antibiotics are required prior to any dental work. FOLLOW UP: Follow up with [Gabriel] Within 10-14 days, call for appointment Please call our office with any questions or concerns ([phone]) [place] [facility] [place], Eliquis sent to [facility]
[2018-11-13 12:44] VITALS: BP 148/68
== END 2018-11-13 12:28 | disposition home or self-care (01) | DRG 470 ==
LOC: AA 05:39 → SSU 10:05
PROVIDERS: ADMIT Orthopaedic Surgery Adult Reconstructive Orthopaedic Surgery; ATTEND Orthopaedic Surgery Adult Reconstructive Orthopaedic Surgery
PROC: 0SRD0J9 Replacement of Left Knee Joint with Synthetic Substitute, Cemented, Open Approach (ICD-10-PCS; principal; 2018-11-10 07:45)
DX: M17.12 Unilateral primary osteoarthritis, left knee (principal); I10 Essential (primary) hypertension; E78.00 Pure hypercholesterolemia, unspecified; Z96.651 Presence of right artificial knee joint; E78.5 Hyperlipidemia, unspecified; M25.462 Effusion, left knee; E66.9 Obesity, unspecified; M47.816 Spondylosis without myelopathy or radiculopathy, lumbar region; M25.762 Osteophyte, left knee; Z86.010 Personal history of colon polyps; Z83.3 Family history of diabetes mellitus; Z90.49 Acquired absence of other specified parts of digestive tract; Z98.51 Tubal ligation status; Z72.89 Other problems related to lifestyle; Z82.49 Family history of ischemic heart disease and other diseases of the circulatory system; Z82.0 Family history of epilepsy and other diseases of the nervous system; Z68.38 Body mass index [BMI] 38.0-38.9, adult
CPT/HCPCS: 36415; 80048; 85014; 85018; 85049; 88305; 88311; A9270-GY; C1776; G8978-GP-CL; G8979-GP-CI; J0690; J1100; J1885; J2250; J2270; J2405; J2795; J3010

== ENCOUNTER 2021-11-07 08:37 | Observation (INO) ==
[~2021-11-07 08:37] MED LIST changes: +Buffered Lidocaine 1% SYRIN 1 ml INTRADERM ONE; +Lactated Ringers 1000 ml BAG 1,000 ML IV SCH; +Midazolam 2 mg/2 ml VIAL 1 mg/ml 2 ml VIAL (2 mg) ONE; -Tranexamic Acid 1,000 MG in NS 0.9% 50 ML* (outpatient use) IV SCH; +fentaNYL 100 mcg/2 ml 50 MCG/ML VIAL ONE
[2021-11-07] MEDS ORDERED: ceFAZolin 2 GM PREMIX 2 GM/50 ML BAG ONE (08:59)
[2021-11-07] MEDS ORDERED: Propofol 10 MG/ML 20 ML BTL ONE (10:25)
[2021-11-07] MEDS ORDERED: Lidocaine 2% PF 5 ML VIAL ONE (10:25)
[2021-11-07] MEDS ORDERED: Rocuronium 50 mg VIAL 10 mg/ml 5 ml VIAL (50 mg) ONE ×2 (10:26→12:18)
[2021-11-07] MEDS ORDERED: ROPIVACAINE 5 MG/ML 30 ML BTL (0.5%) ONE (11:00)
[2021-11-07] MEDS ORDERED: fentaNYL 250 mcg/5 ml 50 MCG/ML 5 ml VIAL (250 MCG) ONE ×2 (11:44→12:20)
[2021-11-07] MEDS ORDERED: Acetaminophen IV 1 GM/100ML 100 ML IV ONE (11:46)
[2021-11-07] MEDS ORDERED: Dexamethasone IV 4 MG/ML VIAL 1 ml VIAL ONE (11:46)
[2021-11-07] MEDS ORDERED: Ondansetron 4 mg VIAL 2 MG/ML 2 ml VIAL ONE ×2 (11:46→16:10)
[2021-11-07] MEDS ORDERED: diPHENhydraMINE 25 mg TAB PO PRN (11:59)
[2021-11-07] MEDS ORDERED: diPHENhydraMINE IV 50 MG/ML 1 ml VIAL (BENADRYL) IV PRN ×2 (11:59→12:12)
[2021-11-07] MEDS ORDERED: Lactulose 30 ml UDC PO PRN (11:59)
[2021-11-07] MEDS ORDERED: Ondansetron ODT 4 mg TAB 4 MG TAB PO PRN ×2 (11:59→12:12)
[2021-11-07] MEDS ORDERED: Magnesium Hydroxide LIQ 30 ML UDC PO PRN (11:59)
[2021-11-07] MEDS ORDERED: Ondansetron 4 mg VIAL 2 MG/ML 2 ml VIAL IV PRN (11:59)
[2021-11-07] MEDS ORDERED: ceFAZolin 1 GM ADVAN 1 GM in NS 0.9% 50 ML 50 ML IVPB SCH (12:00)
[2021-11-07] MEDS ORDERED: DiMENhydriNATE IV 50 mg/ml 1 ml VIAL IV PUSH PRN (12:12)
[2021-11-07] MEDS ORDERED: Naloxone 0.4 mg VIAL 0.4 mg/ml 1 ml VIAL IV PRN (12:12)
[2021-11-07] MEDS ORDERED: Morphine 2 MG/ML SYRINGE IV PRN (12:17)
[2021-11-07] MEDS ORDERED: Phenylephrine IV 10 MG/ML 1 ml VIAL ONE (12:56)
[2021-11-07] MEDS ORDERED: Lactated Ringers 1000 ml BAG 1,000 ML IV SCH (13:00)
[2021-11-07] MEDS ORDERED: HYDROmorphone 1 MG/1 ML SYRINGE ONE ×2 (14:26→15:08)
[2021-11-07] MEDS: HYDROmorphone 1 MG/1 ML SYRINGE IV PRN ×5 (14:35→14:55)
[2021-11-07] MEDS ORDERED: Ondansetron 4 mg VIAL 2 MG/ML 2 ml VIAL IV ONE (18:01)
[2021-11-07] MEDS ORDERED: ceFAZolin VIAL 1 GM in NS 0.9% 50 ML 50 ML IVPB SCH (19:30)
[2021-11-07] MEDS ORDERED: NON FORMULARY MED (Irbesartan 300 MG tablet) PO SCH (21:00)
[2021-11-07] MEDS: Magnesium Hydroxide LIQ 30 ML UDC PO SCH (22:53)
[2021-11-08] MEDS: ceFAZolin 1 GM in Dextrose 1 GM/50 ML BAG IVPB SCH ×2 (04:05→11:17)
[2021-11-08 06:42] LABS: Hematocrit 33 % (35-47); Hemoglobin 10.9 g/dL (12.0-16.0); Mean Platelet Volume 9.5 fL (7.4-10.4); Platelet Count 213 10^3/uL (150-450)
[2021-11-08 06:59] LABS: Potassium 4.4 mmol/L (3.5-5.0); eGFR CKD-EPI 70.7 (>60)
[2021-11-08] MEDS: Magnesium Hydroxide LIQ 30 ML UDC PO SCH (08:15)
[2021-11-08] MEDS ORDERED: Vitamin THERAPEUTIC TAB PO SCH (09:00)
[2021-11-08 11:14] VITALS: BP 108/65
== END 2021-11-08 16:35 | disposition home or self-care (01) ==
LOC: SSU → AA 08:37 → INTOOBSV 08:37 → SSU 18:07
PROVIDERS: ADMIT Orthopaedic Surgery Adult Reconstructive Orthopaedic Surgery; ATTEND Orthopaedic Surgery Adult Reconstructive Orthopaedic Surgery